=== PATIENT | female | born 1990 | race Caucasian/White ===

== ENCOUNTER → 2017-11-12 10:44 | Outpatient (CLI) | payer OTHER, SELFPAY ==
[2017-11-12 10:16] VITALS: BP 107/57; BMI 27.3
[2017-11-12 11:10] LABS: Absolute Lymphocyte Count 1.34 X10^3/ul (0.83-4.51); Absolute Neutrophil Count 6.5 X10^3/uL (2.0-7.7); Basophil# 0.01 X10^3/uL; Basophil% 0.1 % (0-1); Eosinophil# 0.02 X10^3/uL; Eosinophils% 0.2 % (0-5); Hematocrit 34.6 % (37-47); Hemoglobin 12.1 g/dl (12.0-15.0); Lymphocyte # 1.34 X10^3/ul (4.0); Lymphocyte % 16.2 % (19-41); Mean Corpuscular Hgb 30.9 pg (27.0-32.0); Mean Corpuscular Volume 88.3 fL (81-99); Mean Platelet Vol. 9.8 fl (6.2-12.0); Monocyte# 0.35 X10^3/uL; Monocyte% 4.2 % (0-10); Neutrophil # 6.51 X10^3/uL (2.7-7.7); Neutrophil % 78.7 % (47-70); POSITIVE COUNT NO; POSITIVE DIFFERENTIAL NO; POSITIVE MORPHOLOGY NO; Platelet Count 188 K/mm3 (150-450); RBC Distribution Width SD 41.6 fl (35.1-43.9); Red Blood Count 3.92 M/mm3 (4.2-5.4); White Blood Count 8.3 K/mm3 (4.4-11.0)
[2017-11-12 11:33] LABS: Glucose Challenge Gest 1H 50g 95 mg/dL (70-140)
== END ==
PROVIDERS: Nurse Practitioner Women's Health; Visit Provider Obstetrics & Gynecology
DX: Z34.90 Encounter for supervision of normal pregnancy, unspecified, unspecified trimester (principal)
CPT/HCPCS: 36415; 82950; 85025

== ENCOUNTER → 2017-12-12 18:06 | Outpatient (CLI) | payer OTHER, SELFPAY | PROVIDERS: Visit Provider Obstetrics & Gynecology | DX: Z34.90 Encounter for supervision of normal pregnancy, unspecified, unspecified trimester (principal) | CPT/HCPCS: 87086 ==

== ENCOUNTER → 2018-01-16 18:24 | Outpatient (CLI) | payer OTHER, SELFPAY ==
[2018-01-16 20:24] LABS: Group B Strep DNA By PCR POSITIVE (Negative); Probe Check PASS
== END ==
PROVIDERS: Visit Provider Nurse Practitioner Women's Health
DX: Z34.93 Encounter for supervision of normal pregnancy, unspecified, third trimester (principal); Z3A.36 36 weeks gestation of pregnancy
CPT/HCPCS: 87653

== ENCOUNTER → 2018-02-13 11:59 | Outpatient (CLI) | payer OTHER, SELFPAY ==
[2018-02-13 12:15] LABS: Protein, Urine (Random) 43.4 mg/dL (<11.9); Protein:Creat Ratio 184 mg/g CRE (0-200)
== END ==
PROVIDERS: Visit Provider Nurse Practitioner Women's Health
DX: R80.9 Proteinuria, unspecified (principal)
CPT/HCPCS: 82570; 84156

== ENCOUNTER 2018-02-18 07:15 | Inpatient (IN) | payer OTHER, SELFPAY ==
[2018-02-18] MEDS: Lactated Ringers 1,000 ML 50 ML IV ×3 (07:40→14:58)
[2018-02-18] MEDS: Oxytocin 30 units/NS 500 ml 30 UNITS/500 ML IV.SOLN IV (07:50)
[2018-02-18 08:04] LABS: Hematocrit 34.5 % (37-47); Hemoglobin 12.4 g/dl (12.0-15.0); Mean Corp Hgb Conc 35.9 g/gl (32-36); Mean Corpuscular Hgb 30.8 pg (27.0-32.0); Mean Corpuscular Volume 85.8 fL (81-99); Mean Platelet Vol. 10.2 fl (6.2-12.0); Platelet Count 189 K/mm3 (150-450); RBC Distribution Width CV 12.7 % (11.6-14.6); RBC Distribution Width SD 38.5 fl (35.1-43.9); Red Blood Count 4.02 M/mm3 (4.2-5.4)
[2018-02-18 08:05] LABS: Scan Indicated on CBC? Y/N NO
--- NOTE | 2018-02-18 10:16 | HP.PCM_ITS ---
- Problem List (1) Post-dates Status: Acute (2) Positive GBS test Status: Acute Comment: pcn (3) Recurrent loss with current Status: Acute (4) Supervision of normal Status: Acute Qualifiers: Comment: PRR CIRO 02/12/18 girl David shaikh Sohail History Date of Admission: 02/18/18 Final CIRO: 02/12/18 Gestational age: 40 Weeks and 6 Days History of this : 28 yo @ 40w6d presents IOL postdates Pertinent Past Medical History: PFSH PFSH Surgical History History of thyroid surgery (Acute) S/P bunionectomy (Acute) Social History Smoking Status: Never smoker alcohol intake: never substance use type: does not use caffeine: Yes what type of physical activity do you participate in: none seatbelt use: always do you feel safe at home: Yes additional social history: Sujata [place] Pregancy History 5 Elective abortions Hx Para 1 Spontaneous abortions Hx # Term Pregnancies Ectopic pregnancies Hx # Pregnancies Multiple births # of living children Past Pregnancies Del. Date Name GA/Weeks Outcome Route Bth Weight Gen Labor Lgth Anesthesia Del Locatn Provider FOB Unknown 2015 [place] live - full term SUNITA Allergies codeine Allergy (Verified 02/17/18 09:53) Nausea/Vom/Diarrhea Current Medications Acetaminophen (Tylenol) 325 - 650 mg PO Q4H PRN PRN PRN Reason: PAIN OR FEVER >100.4F Al Hydroxide/Mg Hydroxide (Mylanta Ii) 15 - 30 ml PO Q4H PRN PRN PRN Reason: INDIGESTION Citric Acid/Sodium Citrate (Bicitra) 30 ml PO UD PRN Penicillin G Potassium/Dextrose (Penicillin G Potassium) 3 mu in 50 mls @ 100 mls/hr IV Q4H ANJANA Oxytocin/Sodium Chloride () 30 units in 500 mls @ 1 mls/hr IV .Q500H ANJANA Lactated Ringer's () 1,000 mls @ 50 mls/hr IV .Q20H ANJANA Nalbuphine HCl (Nubain) 5 - 10 mg IV Q3H PRN PRN PRN Reason: PAIN (4-10/10) Ondansetron HCl (Zofran) 4 mg IV Q8H PRN PRN PRN Reason: NAUSEA Promethazine HCl (Phenergan) 6.25 - 12.5 mg IV Q4H PRN PRN; Protocol PRN Reason: IF NAUSEA PERSISTS Sodium Chloride () 5 - 15 ml IV UD [facility] Smoking Status: Never smoker Alcohol: None Drug Use: none Number of Fetus(es): 1 - fht 130-140 moderate variability reactive no decels Review of Systems Constitutional: Denies: Chills, Fever, Weight Change HEENT: Denies: Head Aches, Sinus Congestion, Sinus Drainage Cardiovascular: Denies: Chest Pain, Palpitations Respiratory: Denies: Cough, Shortness of breath at rest, Sputum production Gastrointestinal: Denies: Abdominal Pain, Nausea, Vomiting Genitourinary: Denies: Dysuria Musculoskeletal: Denies: Joint Pain, Joint Tenderness Skin: Denies: Rash, Wounds Neurological: Denies: Numbness, Tingling, Focal weakness Psychiatric: Denies: Anxiety, Depression, Homicidal Ideations, Suicidal Ideations Hematologic/ Lymphatic: Denies: Easy Bruising, Easy Bleeding Physical Exam General: Alert, Oriented x3, No apparent distress Cardiovascular: Regular rate, Regular Rhythm Lungs: Normal air movement Abdomen: Gravid Extremities:: No edema Estimated gestational size: Appropriate for gestational size Assessment/Plan Active and Suspected Problems (Last Reviewed 02/17/18 @ 09:52 by Negar García) Post-dates (Acute) 28 yo @ 40w6d prsents IOL postdates gbs pos- PCN pit per protocol epi PRN
[2018-02-18] MEDS: fentaNYL-bupivacaine (epidural) 100 ML BAG EPIDURAL (13:42)
[2018-02-18] MEDS: Oxytocin 30 units/NS 500 ml 30 UNITS/500 ML IV.SOLN 334 UNITS IV (15:47)
--- NOTE | 2018-02-18 17:31 | PCM.OB.VAG ---
- Problem List (1) Post-dates Status: Acute (2) Positive GBS test Status: Acute Comment: pcn (3) Recurrent loss with current Status: Acute (4) Supervision of normal Status: Acute Qualifiers: Comment: PRR CIRO 02/12/18 girl David shaikh Sohail Vaginal Delivery Maternal Presentation: Medically Indicated Induction postdates IOL 40w6d Method of Induction: Pitocin Amniotic Membrane Rupture Type: Artificial Amniotic Fluid Description: Clear Final CIRO: 02/12/18 Gestational age: 40 Weeks and 6 Days Date of Procedure: 02/18/18 Pre-Operative Diagnosis: iol postdates Post-Operative Diagnosis: same Surgery/ Procedure Performed: Spontaneous Vaginal Delivery Type of Anesthesia: Epidural Description of Procedure: Patient began pushing and delivered the head in the KETAN presentation. The head was delivered atraumatically. The anterior and posterior shoulders delivered without complication followed by the rest of the and the infant was placed on the maternal abdomen. Delayed cord clamping was employed for approximately 60 seconds. Cord was clamped and cut and gentle traction was applied to the cord and the placenta delivered spontaneously immediately following it was noted to be intact with three-vessel cord. The perineum and vagina were inspected and noted to have a first degree laceration repaired in the usual fashion with 3-0 vicryl rapide. EBL was 200 cc. Patient and infant tolerated delivery well. Presentation: KETAN Placental Delivery Description: Spontaneous Placenta Disposition: [facility] Cord Vessel Description: 3 Vessels Cord Entanglement: None Estimated Blood Loss: 400 Infant A gender: Female Episiotomy Description: None Laceration: Perineal Extension/lac, 2nd degree Medications given after delivery: IV Pitocin Complications: None
[2018-02-18 20:10] VITALS: BP 101/65; PULSE 72; RESP 16; TEMP 36.3
[2018-02-18 23:15] VITALS: BP 97/52; PULSE 89; RESP 16; TEMP 35.9
[2018-02-19 03:35] VITALS: BP 95/51; PULSE 63; RESP 17; TEMP 36.4
[2018-02-19] MEDS: Naproxen 250 MG Tablet PO ×3 (03:54→20:06)
[2018-02-19 07:39] VITALS: BP 97/65; PULSE 72; RESP 16; TEMP 36.9; O2SAT 96
--- NOTE | 2018-02-19 08:01 | PCM.PN.OB ---
Patient Problems: Active and Suspected Problems (Last Reviewed 02/17/18 @ 09:52 by Negar García) Post-dates (Acute) Subjective: Doing well. No SOB, CP. - Physical Exam General: Alert, Oriented x3 Abdomen: Soft, Non Tender Extremities: - - FF below U Vital Signs Temp Pulse Resp BP Pulse Ox 98.4 F 72 16 97/65 96 02/19/18 07:39 02/19/18 07:39 02/19/18 07:39 02/19/18 07:39 02/19/18 07:39 Oxygen Delivery Method Room Air Weight: 180 lb 12.465 oz Body Mass Index (BMI) 30.0 Intake and Output for Last 24 Hours 02/17/18 02/18/18 02/19/18 23:59 23:59 23:59 Intake Total 2800 / 2800 Output Total 1450 / 1450 Balance 1350 / 1350 Laboratory Tests Past 24 Hrs 02/18/18 02/18/18 07:40 07:40 WBC 9.0 RBC 4.02 L Hgb 12.4 Hct 34.5 L MCV 85.8 MCH 30.8 MCHC 35.9 RDW 12.7 RDW Differential 38.5 Plt Count 189 MPV 10.2 Blood Type A POSITIVE Antibody Screen NEGATIVE Medical Necessity - Tobacco Use Smoking Status: Never smoker Assessment/Plan Active and Suspected Problems (Last Reviewed 02/17/18 @ 09:52 by Negar García) Post-dates (Acute) PPD #1: Doing well. . Routine care
[2018-02-19] MEDS: Prenatal Vits Tablet 1 TABLET PO (11:48)
[2018-02-19 11:53] VITALS: BP 97/57; PULSE 75; RESP 16; TEMP 37.2; O2SAT 97
--- NOTE | 2018-02-19 12:44 | CHAPLAIN ---
Type of Pastoral Visit _x__ Initial Visit ___ Follow-up Visit ___ On-call Visit ___ General Patient Visit ___ Spiritual Assessment ___ Family Conference ___ Bereavement ___ Rapid Response ___ Code Blue ___ Other (describe below) Pastoral Care Referral From _x__ Patient ___ Family ___ Nurse ___ Physician ___ Irrigation Manager ___ Hardboard Supervisor ___ Other (describe below) Sacrament/Intervention _x__ Active listening ___ Anointing ___ Nondenominational ___ Bereavement ___ Communion ___ Joan exploration ___ _x__ Life review _x__ Prayer ___ Reconciliation ___ Sacrament of Sick ___ Supportive presence ___ Wedding ___ Other (describe below) Pastoral Comments patient and family known to this auriculotherapist; offer of support to patient on of child; prayer and visit welcomed
[2018-02-19 15:30] VITALS: BP 100/63; PULSE 75; RESP 18; TEMP 36.9
[2018-02-19 20:05] VITALS: BP 105/63; PULSE 78; RESP 16; TEMP 36.7; O2SAT 99
[2018-02-20 01:40] VITALS: BP 104/58; PULSE 72; RESP 16; TEMP 36.4; O2SAT 98
--- NOTE | 2018-02-20 07:54 | PCM.PN.OB ---
Patient Problems: Active and Suspected Problems (Last Reviewed 02/17/18 @ 09:52 by Negar García) Post-dates (Acute) Subjective: Doing well. No SOB, CP. Normal lochia. Ambulating and voiding normally. Home today. - Physical Exam General: Alert, Oriented x3 Abdomen: Soft, Non Tender, - - FF below U Vital Signs Temp Pulse Resp BP Pulse Ox 97.6 F L 72 16 104/58 L 98 02/20/18 01:40 02/20/18 01:40 02/20/18 01:40 02/20/18 01:40 02/20/18 01:40 Oxygen Delivery Method Room Air Weight: 180 lb 12.465 oz Body Mass Index (BMI) 30.0 Intake and Output for Last 24 Hours 02/18/18 02/19/18 02/20/18 23:59 23:59 23:59 Intake Total 2800 / 2800 Output Total 1450 / 1450 Balance 1350 / 1350 Medical Necessity - Tobacco Use Smoking Status: Never smoker Assessment/Plan Active and Suspected Problems (Last Reviewed 02/17/18 @ 09:52 by Negar García) Post-dates (Acute) PPD#2 Routine care. . OTC med for discomfort. Home today.
--- NOTE | 2018-02-20 07:56 | DCINST_ITS ---
Additional Instructions: If you experience any of the following, contact your healthcare provider. * Bleeding that soaks a pad every hour for 2 hours * Fever 100.4 or higher * Unrelieved incision or abdominal pain * Swelling, redness, discharge or bleeding from your incision or episiotomy site * Your incision begins to separate * Problems urinating (including inability to urinate or burning while urinating) . * Visual changes * Severe headache * Flu-like symptoms * Pain or redness in one of both of your breasts * Pain, warmth, tenderness or swelling in your legs, especially the calf area * Frequent nausea and vomiting * Symptoms of depression or anxiety If you experience any of the following, call 911 or go to the nearest Emergency Room. * Chest pain * Problems breathing * Seizure activity * Partial or complete paralysis of a body part, slurred speech, weakness or drooping of the face, or a sudden inability to walk or hold your balance Allergies/Adverse Reactions: Allergies codeine Allergy (Verified 02/17/18 09:53) Nausea/Vom/Diarrhea Medications to take at Discharge Vit No.130/Iron/FA [ Vitamins] 1 ea PO DAILY 12/06/15 Primary Care Physician: Care Physician,No Primary [Primary Care Provider] -
--- NOTE | 2018-02-20 07:56 | PCM.DCVAG ---
Additional Instructions: If you experience any of the following, contact your healthcare provider. Bleeding that soaks a pad every hour for 2 hours Fever 100.4 or higher Unrelieved incision or abdominal pain Swelling, redness, discharge or bleeding from your incision or episiotomy site Your incision begins to separate Problems urinating (including inability to urinate or burning while urinating). Visual changes Severe headache Flu-like symptoms Pain or redness in one of both of your breasts Pain, warmth, tenderness or swelling in your legs, especially the calf area Frequent nausea and vomiting Symptoms of depression or anxiety If you experience any of the following, call 911 or go to the nearest Emergency Room. Chest pain Problems breathing Seizure activity Partial or complete paralysis of a body part, slurred speech, weakness or drooping of the face, or a sudden inability to walk or hold your balance Allergies/Adverse Reactions: Allergies codeine Allergy (Verified 02/17/18 09:53) Nausea/Vom/Diarrhea Medications to take at Discharge Vit No.130/Iron/FA [ Vitamins] 1 ea PO DAILY 12/06/15 Primary Care Physician: Care Physician,No Primary [Primary Care Provider] -
[2018-02-20 08:34] VITALS: BP 108/77; PULSE 68; RESP 20; TEMP 37; O2SAT 97
[2018-02-20] MEDS: Prenatal Vits Tablet 1 TABLET PO (10:12)
--- NOTE | 2018-02-20 10:50 | NURSING ---
1030 While rounding, Mom states that she hasn't decided whether she will continue or not. I discussed her calling if she has any further questions or concerns with feedings. Encouragement given. Latrice MARTINEZ
== END 2018-02-20 11:00 | disposition home or self-care (01) | DRG 774 ==
PROVIDERS: Admitting Provider Obstetrics & Gynecology; Visit Provider Obstetrics & Gynecology
DX: O48.0 Post-term pregnancy (principal); O98.82 Other maternal infectious and parasitic diseases complicating childbirth; Z3A.40 40 weeks gestation of pregnancy; B95.1 Streptococcus, group B, as the cause of diseases classified elsewhere; O70.0 First degree perineal laceration during delivery; Z37.0 Single live birth
CPT/HCPCS: 59025; 59050; 85027; 86850; 86900; 99218; J7120; G0378

== ENCOUNTER → 2023-12-31 | Outpatient (CLI) | payer OTHER, SELFPAY ==
[2024-01-03 06:09] LABS: Chlamydia By Nucleic Acid AMP Negative (Negative); Gonococcus By Nucleic Acid AMP Negative (Negative)
[2024-01-06 15:07] LABS: HPV APTIMA, High Risk Negative (Negative)
== END | disposition home or self-care (01) ==
LOC: LABSPEC 16:04
PROVIDERS: Referring Provider Advanced Practice Midwife; Visit Provider Advanced Practice Midwife
DX: Z34.90 Encounter for supervision of normal pregnancy, unspecified, unspecified trimester (principal); E07.9 Disorder of thyroid, unspecified
CPT/HCPCS: 87086; 87491; 87591; 87624; 88175; G0145

== ENCOUNTER → 2024-01-23 | Outpatient (CLI) | payer OTHER, SELFPAY ==
[2024-01-23 13:34] LABS: Absolute Lymphocyte Count 1.45 X10^3/uL (0.83-4.51); Absolute Neutrophil Count 3.9 X10^3/uL (2.0-7.7); Basophil# 0.03 X10^3/uL; Basophil% 0.5 % (0-1); Eosinophil# 0.05 X10^3/uL; Eosinophils% 0.9 % (0-5); Hematocrit 37.9 % (37-47); Hemoglobin 13.2 g/dL (12.0-15.0); Lymphocyte # 1.45 X10^3/ul (0.83-4.51); Mean Corp Hgb Conc 34.8 g/dL (32-36); Mean Corpuscular Hgb 29.5 pg (27.0-32.0); Mean Corpuscular Volume 84.6 fL (81-99); Mean Platelet Vol. 9.9 fl (6.2-12.0); Monocyte# 0.31 X10^3/uL; Monocyte% 5.4 % (0-10); NRBC Flagged by Analyzer 0 % (0-5); Neutrophil # 3.92 X10^3/uL (2.7-7.7); Neutrophil % 67.7 % (47-70); Platelet Count 211 K/mm3 (150-450); RBC Distribution Width CV 12.4 % (11.6-14.6); RBC Distribution Width SD 38.2 fl (35.1-43.9); Red Blood Count 4.48 M/mm3 (4.2-5.4); White Blood Count 5.8 K/mm3 (4.4-11.0)
[2024-01-23 14:09] LABS: T4 Free Direct 1.15 ng/dL (0.76-1.46); Thyroid Stim Hormone (TSH) 1.83 uIU/mL (0.358-3.74)
[2024-01-23 17:57] LABS: HIV - WCH Preliminary Reactive (Nonreactive); Hepatitis B Surface Antigen Non-Reactive (Nonreactive); Hepatitis C Antibody Non-Reactive (Nonreactive); Rubella IgG Reactive (Nonreactive); Syphilis Antibodies Non-reactive
[2024-01-25 08:13] LABS: Thyroid Peroxidase AB 11 IU/mL (0-34)
== END | disposition home or self-care (01) ==
PROVIDERS: Visit Provider Advanced Practice Midwife
DX: Z34.90 Encounter for supervision of normal pregnancy, unspecified, unspecified trimester (principal)
CPT/HCPCS: 36415; 84439; 84443; 85025; 86376; 86703; 86762; 86780; 86803; 86850; 86900; 86901; 87340

== ENCOUNTER → 2024-01-28 | Outpatient (CLI) | payer OTHER, SELFPAY ==
[2024-01-31 16:10] LABS: Anti-Cardiolipin Ab, IgG, Qn < 9 GPL U/mL (0-14); Anti-Cardiolipin Ab, IgM, Qn < 9 MPL U/mL (0-12); Beta-2-Glycoprotein I IgA <9 (0-25); Beta-2-Glycoprotein I IgG <9 (0-20); Beta-2-Glycoprotein I IgM <9 (0-32); Dilute Russell Viper Venom 32.3 sec (0.0-47.0); Interpretation Comment: (.); PTT-LA 36.4 sec (0.0-43.5); Thrombin Time 16.6 sec (0.0-23.0); dPT Confirm Ratio 1.03 Ratio (0.00-1.34)
== END | disposition home or self-care (01) ==
PROVIDERS: Referring Provider Obstetrics & Gynecology; Visit Provider Obstetrics & Gynecology
DX: N96 Recurrent pregnancy loss (principal)
CPT/HCPCS: 36415; 86146; 86147

== ENCOUNTER → 2024-05-20 | Outpatient (CLI) | payer OTHER, SELFPAY ==
[2024-05-20 10:19] LABS: Absolute Lymphocyte Count 1.49 X10^3/uL (0.83-4.51); Absolute Neutrophil Count 6.2 X10^3/uL (2.0-7.7); Basophil# 0.02 X10^3/uL; Basophil% 0.2 % (0-1); Eosinophil# 0.06 X10^3/uL; Eosinophils% 0.7 % (0-5); Hematocrit 35.1 % (37-47); Hemoglobin 12.2 g/dL (12.0-15.0); Lymphocyte # 1.49 X10^3/ul (0.83-4.51); Lymphocyte % 18.3 % (19-41); Mean Corp Hgb Conc 34.8 g/dL (32-36); Mean Corpuscular Hgb 29.9 pg (27.0-32.0); Mean Platelet Vol. 10.1 fl (6.2-12.0); Monocyte# 0.33 X10^3/uL; Monocyte% 4.1 % (0-10); NRBC Flagged by Analyzer 0 % (0-5); Neutrophil # 6.17 X10^3/uL (2.7-7.7); Platelet Count 196 K/mm3 (150-450); RBC Distribution Width CV 12.6 % (11.6-14.6); RBC Distribution Width SD 38.9 fl (35.1-43.9); Red Blood Count 4.08 M/mm3 (4.2-5.4); White Blood Count 8.1 K/mm3 (4.4-11.0)
[2024-05-20 10:40] LABS: Glucose Challenge Gest 1H 50g 107 mg/dL (70-140)
[2024-05-20 11:17] LABS: HIV - WCH Non-Reactive (Nonreactive); Syphilis Antibodies Non-reactive
== END | disposition home or self-care (01) ==
PROVIDERS: Referring Provider Advanced Practice Midwife; Visit Provider Advanced Practice Midwife
DX: O09.92 Supervision of high risk pregnancy, unspecified, second trimester (principal); Z3A.00 Weeks of gestation of pregnancy not specified
CPT/HCPCS: 36415; 82950; 85025; 86703; 86780

== ENCOUNTER → 2024-07-27 | Outpatient (CLI) | payer OTHER, SELFPAY | END | disposition home or self-care (01) | LOC: LABSPEC 14:42 | PROVIDERS: Referring Provider Obstetrics & Gynecology; Visit Provider Obstetrics & Gynecology | DX: O09.92 Supervision of high risk pregnancy, unspecified, second trimester (principal); Z3A.00 Weeks of gestation of pregnancy not specified | CPT/HCPCS: 87077; 87081; 87186 ==

== ENCOUNTER → 2024-08-19 | Outpatient (CLI) | payer OTHER, SELFPAY ==
--- NOTE | 2024-08-19 17:00 | US_ITS ---
STUDY: SECOND AND THIRD TRIMESTER OBSTETRICAL ULTRASOUND - LIMITED REASON FOR EXAM: Female, 34 years old fluid level PRIOR ULTRASOUND: No relevant prior comparison study available TECHNIQUE: Transabdominal TECHNICAL QUALITY: Adequate. FINDINGS: There is a single intrauterine fetus. The fetus is in a cephalic presentation. There is demonstrated cardiac activity with a heart rate of 1:30 bpm. There is a normal amniotic fluid volume. The largest amniotic fluid pocket measures 8.3 cm. The amniotic fluid index (ALEXANDER) is 19.25 cm. The placenta is posterior. BIOMETRY: BPD: 9.49 cm: 38 weeks, 5 days HC: 33.65 cm: 38 weeks, 4 days AC: 35.29 cm: 39 weeks, 1 days FL: 7.59 cm: 38 weeks, 6 days age by current US: 38 weeks, 5 days. CIRO by current US: August 28, 2024. Estimated weight: 3703 grams, +/- 555 grams US/OB Limited With Biometrics IMPRESSION: Single live intrauterine with an estimated gestational age of 30 weeks and 5 days. Electronically Signed: Sara Reddy MD at 8:28 EST ,
== END | disposition home or self-care (01) ==
LOC: US 16:59
PROVIDERS: Referring Provider Advanced Practice Midwife; Visit Provider Advanced Practice Midwife
DX: O26.849 Uterine size-date discrepancy, unspecified trimester (principal); Z3A.00 Weeks of gestation of pregnancy not specified
CPT/HCPCS: 76816

== ENCOUNTER 2024-08-26 07:12 | Inpatient (IN) | payer OTHER, SELFPAY ==
[2024-08-26] VITALS (26 sets, daily range): BP systolic 97–125; BP diastolic 57–76; PULSE 62–88; RESP 15–16; TEMP 36.6–37.2; O2SAT 94–97; BMI 32.1
--- OUTSIDE RECORDS SUMMARY | 2024-08-26 07:12 | XMS RPT_ITS | CCD ---
Author Organization [facility] Inform ion [facility] Care Team Providers Care Cocoa Roaster Name Role Phone Rosalba Dupont MD Unavailable [phone] MICHELLE Arredondo RN, Jen Bernal Unavailable Brady Arredondo RN RN, Jen Bernal Unavailable Jayshree Sherman Unavailable Unavailable Rosalba Dupont MD Unavailable [phone] MICHELLE Arredondo RN, Jen Bernal Unavailable Brady READ PRIMARY CAREMD Primary Care Unavailable ROSALBA DUPONT Referring KHALIDA Warner Attending Unavailable Allergies Allergy Classification Reported Allergen(s) Allergy Type Date of Onset Reaction(s) Facility (20 sources) brompheniramine/ phenylpropanolam ine drug allergy 12-27-2010 [facility] Work Phone: (20 sources) codeine drug allergy 12-27-2010 [facility] Work Phone: Medications Completed/Discontinued Medications Medication Drug Class(es) Dates Sig (Normalized) Sig (Original) azithromycin 250 mg oral tablet (20 sources) Macrolide Antimicrobial Start: 12-27-2010 End: 01-01-2011 ZITHROMAX 250 MG TABS Take two (2 ) tablets day one, then one (1) tablet a day for four (4) more days AZITHROMYCIN [id number] Jeri Little PA-C PLEXUS (20 sources) Start: 05-06-2017 PLEXUS PLEXUS Rosalba Dupont MD Start: 05-06-2017 PLEXUS PLEXUS Rosalba Dupont MD VIT-FE FUMARATE-FA (2 sources) Start: 06-20-2017 VITAM INS 28-0.8 MG TABS VIT-FE FUMARATE-FA [id number] Rosalba Dupont MD Start: 06-20-2017 VITAM INS 28-0.8 MG TABS VIT-FE FUMARATE-FA [id number] Rosalba Dupont MD VIT-FE FUMARATE-FA (9 sources) Start: 06-20-2017 VITAM INS 28-0.8 MG TABS VIT-FE FUMARATE-FA [id number] Rosalba Dupont MD VIT-FE FUMARATE-FA (5 sources) Start: 06-20-2017 VITAM INS 28-0.8 MG TABS VIT-FE FUMARATE-FA [id number] Rosalba Dupont MD Start: 06-20-2017 VITAM INS 28-0.8 MG TABS VIT-FE FUMARATE-FA [id number] Rosalba Dupont MD Problems Active Problems Problem Classification Problem Date Documented Da te Episodic/Chronic Unclassified (18 sources) 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; Translations: [ care for patient with recurrent loss, first trimester] Onset: 06-11-2017 06-28-2017 Past or Other Problems Problem Classification Problem Date Documented Da te Episodic/Chronic Other complications of ; puerperium affecting management of mother (20 sources) High risk ; Translations: [Supervision of high risk , unspecified, first trimester] Onset: 05-03-2017 Resolved: 05-06-2017 05-06-2017 Episodic Other complications of (20 sources) care for patient with recurrent loss, first trimester; Translations: [High risk ] Onset: 05-03-2017 Resolved: 05-06-2017 06-11-2017 Episodic Other female genital disorders (20 sources) History of recurrent miscarriage - not ; Translations: [Recurrent loss] Onset: 05-06-2017 Resolved: 06-27-2017 05-06-2017 Episodic Other and delivery including normal (13 sources) Gestation period, 9 weeks; Translations: [Gestation period, 17 weeks] Onset: 07-15-2017 07-15-2017 Episodic Other upper respiratory infections (20 sources) Upper respiratory infection; Translations: [Acute upper respiratory infection, unspecified] Onset: 12-27-2010 Resolved: 01-17-2011 12-27-2010 Episodic Residual codes; unclassified (8 sources) 11 weeks gestation of ; Translations: [11 weeks gestation of ] Onset: 07-15-2017 07-29-2017 Results Test Name Value Interpretation Reference Range Facil ity Office Visit: OB Routineon 1 11-07-2016 Documentation of current medications (procedure) Done Invalid Interpretation Code [facility] Urine, glucose presence N Invalid Interpretation Code [facility] Urine, protein N Invalid Interpretation Code [facility] Lab Report: Rapid Plasmin Re agin (RPR)on 08-02-2017 Reagin antibody presence NONREACTIVE Invalid Interpretation Code NONREACTIVE [facility] Lab Report: HIV Screen 4TH G EN W/Confirmon 07-30-2017 GE use only - for LinkLogic import when terms are not otherwise specified Non Reactive Invalid Interpretation Code Non Reactive [facility] HIV1/0/2 SCREEN Non Reactive Invalid Interpretation Code Non Reactive [facility] Lab Report: Hepatitis B Surf carolin Agon 07-30-2017 BSA (Body Surface Area) Negative Invalid Interpretation Code Negative [facility] HBV surface Ag Ql (S) Negative Invalid Interpretation Code Negative [facility] Lab Report: CBC W/Diff, Auto matedon 07-29-2017 Absolute Neut 4.1 X10 3/UL Invalid Interpretation Code 2.0-7.7 [facility] Basophils/100 WBC Auto (Bld) 0.2 % Invalid Interpretation Code 0-1 [facility] Eosinophils/100 WBC Auto (Bld) 0.2 % Invalid Interpretation Code 0-5 [facility] Erythrocyte distribution width Auto Ratio (RBC) 13.0 % Invalid Interpretation Code 11.6-14.6 [facility] Erythrocyte distribution width Auto Ratio (RBC) 39.8 fL Invalid Interpretation Code 35.1-43.9 [facility] Hematocrit Auto Volume Fraction (Bld) 37.5 % Invalid Interpretation Code 37-47 [facility] Hemoglobin mass conc (Bld) 13.3 g/dL Invalid Interpretation Code 12.0-15.0 [facility] Immature granulocytes #/vol (Bld) 0.400 % Invalid Interpretation Code 0.0-0.9 [facility] immature granulocytes, percentage of total cells, blood 0.400 % Invalid Interpretation Code 0.0-0.9 [facility] Immature granulocytes/100 WBC (Bld) 0.400 % Invalid Interpretation Code 0.0-0.9 [facility] Lymphocytes Auto #/vol (Bld) 1.17 X10 3/UL Invalid Interpretation Code 0.83-4.51 [facility] Lymphocytes/100 WBC Auto (Bld) 20.8 % Invalid Interpretation Code 19-41 [facility] MCH Auto Entitic mass (RBC) 30.3 pg Invalid Interpretation Code 27.0-32.0 [facility] MCHC Auto mass conc (RBC) 35.5 G/GL Invalid Interpretation Code 32-36 [facility] MCV Auto Entitic volume (RBC) 85.4 fL Invalid Interpretation Code 81-99 [facility] Monocytes/100 WBC Auto (Bld) 5.0 % Invalid Interpretation Code 0-10 [facility] neutrophil count, blood 4.1 X10 3/UL Invalid Interpretation Code 2.0-7.7 [facility] Neutrophils Auto #/vol (Bld) 4.1 X10 3/UL Invalid Interpretation Code 2.0-7.7 [facility] Neutrophils/100 WBC Auto (Bld) 73.4 % High 47-70 [facility] Platelet mean volume Peter-Kemi Entitic volume (Bld) 10.1 fL Invalid Interpretation Code 6.2-12.0 [facility] Platelets Auto #/vol (Bld) 218 10*3/mm3 Invalid Interpretation Code 150-450 [facility] RBC Auto #/vol (Bld) 4.39 10*6/uL Invalid Interpretation Code 4.2-5.4 [facility] RDW SD 39.8 fL Invalid Interpretation Code 35.1-43.9 [facility] red blood cell distribution width, size density 39.8 fL Invalid Interpretation Code 35.1-43.9 [facility] WBC Auto #/vol (Bld) 5.6 10*3/uL Invalid Interpretation Code 4.4-11.0 [facility] Lab Report: Rubella IgGon Rubella IgG 30.4 [iU]/mL Invalid Interpretation Code [facility] rubella virus antibody, IgG 30.4 [iU]/mL Invalid Interpretation Code [facility] Office Visit: OB Routineon 1 Albumin Ql (U) N Invalid Interpretation Code [facility] Documentation of current medications (procedure) Done Invalid Interpretation Code [facility] Glucose Test strip mass conc (U) N Invalid Interpretation Code [facility] Protein mass conc Done Invalid Interpretation Code [facility] Urine, glucose presence N Invalid Interpretation Code [facility] Urine, protein N Invalid Interpretation Code [facility] Lab Report: CT/NG WCH BY PCR on 07-15-2017 C. trachomatis DNA ZAHEER+probe Ql (U) Negative Invalid Interpretation Code Negative [facility] N. gonorrhoeae DNA ZAHEER+probe Ql (Unsp spec) Negative Invalid Interpretation Code Negative [facility] Office Visit: OB Initialon 1 crown rump length by ultrasound 26 mm Invalid Interpretation Code [facility] Documentation of current medications (procedure) Done Invalid Interpretation Code [facility] estimated date of confinement by sonogram 02/12/2018 Invalid Interpretation Code [facility] Fall risk assessment No Invalid Interpretation Code [facility] cardiac activity by sonography Yes Invalid Interpretation Code [facility] number by ultrasound 1 Invalid Interpretation Code [facility] gestational age by ultrasound 9W 5D Invalid Interpretation Code [facility] Herpes Simplex Virus Genital no Invalid Interpretation Code [facility] OB ultrasound, gestational sac Yes Invalid Interpretation Code [facility] Tobacco smoking status TNIS Never Invalid Interpretation Code [facility] Tobacco smoking status TNIS Tobacco smoking status TNIS Invalid Interpretation Code [facility] Tobacco smoking status TNIS Never smoker Invalid Interpretation Code [facility] Tobacco use HS Never smoker Invalid Interpretation Code [facility] Office Visit: OB Routineon 0 06-27-2017 Documentation of current medications (procedure) Done Invalid Interpretation Code [facility] estimated date of confinement by sonogram 02/18/2018 Invalid Interpretation Code [facility] cardiac activity by sonography Yes Invalid Interpretation Code [facility] number by ultrasound 1 Invalid Interpretation Code [facility] OB ultrasound, gestational sac Yes Invalid Interpretation Code [facility] Protein mass conc Done Invalid Interpretation Code [facility] Lab Report: Urinalysis, Rout ine (Dipstick)on 06-21-2017 Albumin Ql (U) Negative Invalid Interpretation Code Negative [facility] Bilirubin Ql (U) Negative Invalid Interpretation Code Negative [facility] Clarity Nom (U) Clear Invalid Interpretation Code Clear [facility] Color Nom (U) Straw Invalid Interpretation Code Yellow [facility] Glucose Ql (U) Normal mg/dl Invalid Interpretation Code Normal [facility] Ketones mass conc (U) Negative Invalid Interpretation Code Negative [facility] Leukocyte esterase Test strip Ql (U) Negative Invalid Interpretation Code Negative [facility] NITRITE UR Negative Invalid Interpretation Code Negative [facility] Nitrite Urine Negative Invalid Interpretation Code Negative [facility] Occult Blood, urine Negative Invalid Interpretation Code Negative [facility] OCCULT BLOOD-UR Negative Invalid Interpretation Code Negative [facility] pH (U) 7.0 [pH] 5.0 - 8.0 [facility] Specific gravity Refractometry Relative Density (U) 1.005 Invalid Interpretation Code 1.002-1.030 [facility] Urine, bilirubin presence Negative Invalid Interpretation Code Negative [facility] Urine, ketones presence Negative Invalid Interpretation Code Negative [facility] Urine, pH 7.0 [pH] Invalid Interpretation Code 5.0 - 8.0 [facility] Urine, protein Negative Invalid Interpretation Code Negative [facility] UROBILI Normal mg/dl Invalid Interpretation Code Normal [facility] urobilinogen, urine, by dipstick Normal mg/dl Invalid Interpretation Code Normal [facility] Office Visit: OB Initialon 0 06-20-2017 Documentation of current medications (procedure) Done Invalid Interpretation Code [facility] estimated date of confinement by sonogram 02/23/2018 Invalid Interpretation Code [facility] Fall risk assessment No Invalid Interpretation Code [facility] cardiac activity by sonography No Invalid Interpretation Code [facility] number by ultrasound 1 Invalid Interpretation Code [facility] gestational age by ultrasound 4W 4D Invalid Interpretation Code [facility] OB ultrasound, gestational sac Yes Invalid Interpretation Code [facility] Protein mass conc Done [facility] Tobacco smoking status NHIS Never Invalid Interpretation Code [facility] Tobacco smoking status NHIS Never smoker Invalid Interpretation Code [facility] Tobacco use CPHS Never smoker Invalid Interpretation Code [facility] Lab Report: hCG Titer Quant. , Serumon 06-13-2017 B-HCG 830 m[IU]/mL High <9 non-preg [facility] Lab Report: hCG Titer Quant. , Serumon 06-11-2017 B-HCG 296 m[IU]/mL High <9 non-preg [facility] Lab Report: Miscellaneous La b Procedureon 05-08-2017 GE use only - for LinkLogic import when terms are not otherwise specified . Invalid Interpretation Code [facility] MISC LAB TEST . Invalid Interpretation Code [facility] Lab Report: Thyroid Stim Hor aby (TSH)on 05-06-2017 Thyrotropin Qn 1.73 u[iU]/mL Invalid Interpretation Code 0.358-3.74 [facility] Office Visit: Discuss M/Con 05-06-2017 Documentation of current medications (procedure) Done Invalid Interpretation Code [facility] Fall risk assessment No [facility] Protein mass conc Done [facility] Tobacco smoking status NHIS Never [facility] Tobacco smoking status NHIS Never smoker [facility] Tobacco use CPHS Never smoker Invalid Interpretation Code [facility] Lab Report: ,Serum, hCG Quali.on 05-03-2017 B-HCG 8 m[IU]/mL Invalid Interpretation Code =>Qualitative [facility] Work Phone: Replaced Document: (P) Pregn diana,Serum,hCG Quali.on 05-03-2017 beta HCG, serum, qualitative Negative Invalid Interpretation Code 0-9 Nonpreg [facility] Work Phone: Office Visit: sinus congesti onon 12-27-2010 Tobacco use CPHS never Invalid Interpretation Code [facility] Work Phone: Vital Signs Date Time Vital Sign Value Performing Clinician Seb holman 09-06-2017 12:10-0500 BMI (Body Mass Index) 25.79 kg/m2 Rosalba Dupont MD [facility] 09-06-2017 12:10-0500 BP Diastolic 69 mm[Hg] Rosalba Dupont MD [facility] 09-06-2017 12:10-0500 BP Systolic 108 mm[Hg] Rosalba Dupont MD [facility] 09-06-2017 12:10-0500 Weight 70.31 kg Rosalba Dupont MD [facility] 07-29-2017 10:50-0400 BMI (Body Mass Index) 25.42 kg/m2 Rosalba Dupont MD [facility] 07-29-2017 10:50-0400 Body Temperature 99.4 [degF] Rosalba Dupont MD [facility] 07-29-2017 10:50-0400 BP Diastolic 67 mm[Hg] Rosalba Dupont MD [facility] 07-29-2017 10:50-0400 BP Systolic 104 mm[Hg] Rosalba Dupont MD [facility] 07-29-2017 10:50-0400 Pulse (Heart Rate) 76 /min Rosalba Dupont MD [facility] 07-29-2017 10:50-0400 Respiratory Rate 16 /min Rosalba Dupont MD [facility] 07-29-2017 10:50-0400 Weight 69.31 kg Rosalba Dupont MD [facility] 07-15-2017 11:25-0400 BMI (Body Mass Index) 25.06 kg/m2 Rosalba Dupont MD [facility] 07-15-2017 11:25-0400 BP Diastolic 70 mm[Hg] Rosalba Dupont MD [facility] 07-15-2017 11:25-0400 BP Systolic 105 mm[Hg] Rosalba Dupont MD [facility] 07-15-2017 11:25-0400 Height 165.1 cm Rosalba Dupont MD [facility] 07-15-2017 11:25-0400 Pulse (Heart Rate) 80 /min Rosalba Dupont MD [facility] 07-15-2017 11:25-0400 Weight 68.31 kg Rosalba Dupont MD [facility] 06-27-2017 05:51-0400 BMI (Body Mass Index) 24.33 kg/m2 Rosalba Dupont MD [facility] 06-27-2017 05:51-0400 Body Temperature 97.4 [degF] Rosalba Dupont MD [facility] 06-27-2017 05:51-0400 BP Diastolic 67 mm[Hg] Rosalba Dupont MD [facility] 06-27-2017 05:51-0400 BP Systolic 114 mm[Hg] Rosalba Dupont MD [facility] 06-27-2017 05:51-0400 Pulse (Heart Rate) 93 /min Rosalba Dupont MD [facility] 06-27-2017 05:51-0400 Respiratory Rate 16 /min Rosalba Dupont MD [facility] 06-27-2017 05:51-0400 Weight 66.32 kg Rosalba Dupont MD [facility] 06-20-2017 10:30-0400 BMI (Body Mass Index) 24.23 kg/m2 Rosalba Dupont MD [facility] 06-20-2017 10:30-0400 Body Temperature 97.9 [degF] Rosalba Dupont MD [facility] 06-20-2017 10:30-0400 BP Diastolic 68 mm[Hg] Rosalba Dupont MD [facility] 06-20-2017 10:30-0400 BP Systolic 115 mm[Hg] Rosalba Dupont MD [facility] 06-20-2017 10:30-0400 Height 165.1 cm Rosalba Dupont MD [facility] 06-20-2017 10:30-0400 Pulse (Heart Rate) 81 /min Rosalba Dupont MD [facility] 06-20-2017 10:30-0400 Respiratory Rate 16 /min Rosalba Dupont MD [facility] 06-20-2017 10:30-0400 Weight 66.04 kg Rosalba Dupont MD [facility] 05-06-2017 09:13-0400 BMI (Body Mass Index) 23.66 kg/m2 Rosalba Dupont MD [facility] 05-06-2017 09:13-0400 Body Temperature 98.5 [degF] Rosalba Dupont MD [facility] 05-06-2017 09:13-0400 Body Temperature 98.49 [degF] Rosalba Dupont MD [facility] 05-06-2017 09:13-0400 BP Diastolic 72 mm[Hg] Rosalba Dupont MD [facility] 05-06-2017 09:13-0400 BP Systolic 105 mm[Hg] Rosalba Dupont MD [facility] 05-06-2017 09:13-0400 Height 165.1 cm Rosalba Dupotn MD [facility] 05-06-2017 09:13-0400 Pulse (Heart Rate) 72 /min Rosalba Dupont MD [facility] 05-06-2017 09:13-0400 Respiratory Rate 16 /min Rosalba Dupont MD [facility] 05-06-2017 09:13-0400 Weight 64.5 kg Rosalba Dupont MD [facility] 12-27-2010 18:02-0400 Body Temperature 98.6 [degF] Jen Arredondo RN RN [facility] Work Phone: 12-27-2010 18:02-0400 BP Diastolic 70 mm[Hg] Jen Arredondo RN RN [facility] Work Phone: 12-27-2010 18:02-0400 BP Systolic 120 mm[Hg] Jen Arredondo RN RN [facility] Work Phone: 12-27-2010 18:02-0400 Pulse (Heart Rate) 84 /min Jen Arredondo RN RN [facility] Work Phone: 12-27-2010 18:02-0400 Respiratory Rate 16 /min Jen Arredondo RN RN [facility] Work Phone: 12-27-2010 18:02-0400 Weight 66.59 kg Jen Arredondo RN RN [facility] Work Phone: Encounters Encounter Date Encounter Type Care Provider Facility Start: 04-07-2024 End: 04-07-2024 ambulatory MD [facility] pital Procedures Date Procedure Procedure Detail Performing Clinician Start: 09-06-2017 End: 09-06-2017 Routine OB Visit (Global) Rosalba singh MD Work Phone: Start: 09-06-2017 End: 09-06-2017 Routine OB Visit (Global) Rosalba singh MD Work Phone: Start: 07-29-2017 End: 07-29-2017 Routine OB Visit (Global) Rosalba singh MD Work Phone: Start: 07-29-2017 End: 07-29-2017 Antibody screen Rosalba Mckeon Start: 07-29-2017 End: 07-29-2017 Routine OB Visit (Global) Rosalba singh MD Work Phone: Start: 07-15-2017 End: 07-30-2017 *CBC with Differential Rosalba floyd MD Work Phone: Start: 07-15-2017 End: 07-30-2017 *GC/Chlamydia Rosalba Dupont MD Work Phone: Start: 07-15-2017 End: 07-30-2017 *HEBSAG - Hep B Surface Antigen 6510 Rosalba Dupont MD Work Phone: Start: 07-15-2017 End: 07-30-2017 *HIV antibody Rosalba Dupont MD Work Phone: Start: 07-15-2017 End: 07-30-2017 *TS Type and Screen Rosalba Dupont MD Work Phone: Start: 07-15-2017 End: 07-30-2017 Bacteria identified in Urine by Culture Rosalba Dupont MD Work Phone: Start: 07-15-2017 End: 08-04-2017 Reagin Ab [Presence] in Serum by RPR Rosalba Dupont MD Work Phone: Start: 07-15-2017 End: 07-17-2017 Routine OB Visit (Global) Rosalba singh MD Work Phone: Start: 07-15-2017 End: 07-30-2017 Rubella virus Ab [Units/volume] in Serum Rosalba Dupont MD Work Phone: Start: 07-15-2017 End: 07-30-2017 Us preg uterus after 1st trimest 10/07 gestation Rosalba Dupont MD Work Phone: Start: 07-15-2017 End: 07-30-2017 *CBC with Differential Rosalba floyd MD Work Phone: Start: 07-15-2017 End: 07-30-2017 *GC/Chlamydia Rosalba Dupont MD Work Phone: Start: 07-15-2017 End: 07-30-2017 *HEBSAG - Hep B Surface Antigen 6510 Rosalba Dupont MD Work Phone: Start: 07-15-2017 End: 07-30-2017 *HIV antibody Rosalba Dupont MD Work Phone: Start: 07-15-2017 End: 07-30-2017 *TS Type and Screen Rosalba Dupont MD Work Phone: Start: 07-15-2017 End: 07-30-2017 Ob us >/= 14 wks, sngl fetus Rosalba jenkins MD Work Phone: Start: 07-15-2017 End: 08-04-2017 Reagin antibody presence Rosalba gupta MD Work Phone: Start: 07-15-2017 End: 07-17-2017 Routine OB Visit (Global) Rosalba singh MD Work Phone: Start: 07-15-2017 End: 07-30-2017 Rubella virus Ab [Units/volume] in Serum Rosalba Dupont MD Work Phone: Start: 07-15-2017 End: 07-30-2017 Urine culture, bacteria Rosalba velasco MD Work Phone: Start: 06-27-2017 End: 06-27-2017 Routine OB Visit (Global) Rosalba singh MD Work Phone: Start: 06-27-2017 End: 06-27-2017 Us uterus limited 1/> fetuses Rosalba Dupont MD Work Phone: Start: 06-27-2017 End: 06-27-2017 Ob us, limited, fetus(s) Rosalba gupta MD Work Phone: Start: 06-27-2017 End: 06-27-2017 Routine OB Visit (Global) Rosalba singh MD Work Phone: Start: 06-21-2017 End: 06-21-2017 Urinalysis Rosalba Mckeon Start: 06-20-2017 End: 06-21-2017 *UA - Urinalysis w/o Micro Rosalba melton MD Work Phone: Start: 06-20-2017 End: 06-20-2017 Us uterus limited 1/> fetuses Rosalba Dupont MD Work Phone: Start: 06-20-2017 End: 06-21-2017 *UA - Urinalysis w/o Micro Rosalba melton MD Work Phone: Start: 06-20-2017 End: 06-20-2017 Ob us, limited, fetus(s) Rosalba gupta MD Work Phone: Start: 06-11-2017 End: 06-12-2017 Choriogonadotropin.beta subunit [Units/volume] in Serum or Plasma Rosalba Dupont MD Work Phone: Start: 06-11-2017 End: 06-12-2017 B-HCG Rosalba Dupont MD Work Phone: Start: 05-06-2017 End: 05-08-2017 Lupus Anticoagulant Evaluation w/Reflex Rosalba Dupont MD Work Phone: Start: 05-06-2017 End: 05-06-2017 Thyrotropin [Units/volume] in Serum or Plasma Rosalba Dupont MD Work Phone: Start: 05-06-2017 End: 05-08-2017 Lupus Anticoagulant Evaluation w/Reflex Rosalba Dupont MD Work Phone: Start: 05-06-2017 End: 05-06-2017 Thyroid stimulating hormone (TSH) Rosalba Dupont MD Work Phone: Start: 05-03-2017 End: 05-04-2017 Choriogonadotropin ( test) [Presence] in Serum or Plasma Rosalba Dupont MD Work Phone: Start: 05-03-2017 End: 05-04-2017 Choriogonadotropin ( test) [Presence] in Serum or Plasma Rosalba Dupont MD Work Phone: Plan of Treatment Date Care Activity Detail Author Start: 09-06-2017 End: 09-06-2017 Appointment Appointment [facility] Start: 07-29-2017 End: 07-29-2017 Appointment Appointment [facility] Start: 07-15-2017 End: 07-30-2017 *CBC with Differential *CBC with Differential [facility] Start: 07-15-2017 End: 07-30-2017 *GC/Chlamydia *GC/Chlamydia [facility] Start: 07-15-2017 End: 07-30-2017 *HEBSAG - Hep B Surface Antigen 6510 *HEBSAG - Hep B Surface Antigen 6510 [facility] Start: 07-15-2017 End: 07-30-2017 *HIV antibody *HIV antibody [facility] Start: 07-15-2017 End: 07-30-2017 *TS Type and Screen *TS Type and Screen [facility] Start: 07-15-2017 End: 07-30-2017 Reagin antibody presence *[facility] Start: 07-15-2017 End: 07-30-2017 Rubella virus Ab [Units/volume] in Serum *Rubella Screen [facility] Start: 07-15-2017 End: 07-30-2017 Urine culture, bacteria *CUUR - Culture, Urine ([place] Count) [facility] Start: 07-15-2017 End: 07-30-2017 Us preg uterus after 1st trimest 1/1st gestation US OB, >14 weeks [facility] Start: 07-15-2017 End: 07-15-2017 Appointment Appointment [facility] Start: 07-15-2017 End: 07-30-2017 *CBC with Differential *CBC with Differential [facility] Start: 07-15-2017 End: 07-30-2017 *GC/Chlamydia *GC/Chlamydia [facility] Start: 07-15-2017 End: 07-30-2017 *HEBSAG - Hep B Surface Antigen 6510 *HEBSAG - Hep B Surface Antigen 6510 [facility] Start: 07-15-2017 End: 07-30-2017 *HIV antibody *HIV antibody [facility] Start: 07-15-2017 End: 07-30-2017 *TS Type and Screen *TS Type and Screen [facility] Start: 07-15-2017 End: 07-30-2017 Ob us >/= 14 wks, sngl fetus US OB, >14 weeks [facility] Start: 07-15-2017 End: 07-30-2017 Reagin antibody presence *[facility] Start: 07-15-2017 End: 07-30-2017 Rubella virus Ab [Units/volume] in Serum *Rubella Screen [facility] Start: 07-15-2017 End: 07-30-2017 Urine culture, bacteria *CUUR - Culture, Urine ([place] Count) [facility] Start: 06-27-2017 End: 06-27-2017 Appointment Appointment [facility] Start: 06-20-2017 End: 06-21-2017 *UA - Urinalysis w/o Micro *UA - Urinalysis w/o Micro [facility] Start: 06-20-2017 End: 06-20-2017 Appointment Appointment [facility] Start: 06-20-2017 End: 06-21-2017 *UA - Urinalysis w/o Micro *UA - Urinalysis w/o Micro [facility] Start: 06-11-2017 End: 06-12-2017 HCG.beta subunit Qn *HCGT - HCG Titer Quant., Serum [facility] Start: 06-11-2017 End: 06-12-2017 B-HCG *HCGT - HCG Titer Quant., Serum [facility] Start: 05-06-2017 End: 05-08-2017 Lupus Anticoagulant Evaluation w/Reflex Lupus Anticoagulant Evaluation w/Reflex [facility] Start: 05-06-2017 End: 05-06-2017 Thyroid stimulating hormone (TSH) *TSH [facility] Start: 05-06-2017 End: 05-08-2017 Lupus Anticoagulant Evaluation w/Reflex Lupus Anticoagulant Evaluation w/Reflex [facility] Start: 05-06-2017 End: 05-06-2017 Thyroid stimulating hormone (TSH) *TSH [facility] Start: 05-03-2017 End: 05-04-2017 HCG ( test) Ql *PREGS - Qualitative, Serum [facility] Start: 05-03-2017 End: 05-04-2017 Choriogonadotropin ( test) [Presence] in Serum or Plasma *PREGS - Qualitative, Serum [facility] Work Phone: Payers Date Payer Category Payer Unknown [id number] Unknown [id number] Summary Purpose Family History No Family History Records Found Advance Directives No Advanced Directives Records Found Additional Source Comments INFORMATION SOURCE (unrecogn ized section and content) DATE CREATED AUTHOR 04/08/2024 [facility] FOR RECORDS PERTAINING TO PATIENTS WHO ARE OR HAVE BEEN ENROLLED IN A CHEMICAL DEPENDENCY/SUBSTANCEABUSE PROGRAM, SOME INFORMATION MAY BE OMITTED. This clinical summary was aggregated from multiple sources. Caution should be exercised in using it in the provision of clinical care. This summary normalizes information from multiple sources, and as a consequence, information in this document may materially change the coding, format and clinical context of patient data. In addition, data may be omitted in some cases. CLINICAL DECISIONS SHOULD BE BASED ON THE PRIMARY CLINICAL RECORDS. [email or web address] provides no warranty or guarantee of the accuracy or completeness of information in this document.
[2024-08-26] MEDS: Lactated Ringers 1,000 ML 50 ML IV (07:45)
--- OUTSIDE RECORDS SUMMARY | 2024-08-26 07:46 | XMS RPT_ITS | CCD ---
Author Organization [facility] Inform ion [facility] Care Team Providers Care Primary Special Educator Name Role Phone Rosalba Dupont MD Unavailable [phone] MICHELLE Arredondo RN, Jen Bernal Unavailable Brady Arredondo RN RN, Jen Bernal Unavailable Jayshree Sherman Unavailable Unavailable Rosalba Dupont MD Unavailable [phone] MICHELLE Arredondo RN, Jen Bernal Unavailable Brady READ PRIMARY CAREMD Primary Care Unavailable ROSALBA DUPONT Referring KHALIDA Warner Attending Unavailable Allergies Allergy Classification Reported Allergen(s) Allergy Type Date of Onset Reaction(s) Facility (20 sources) brompheniramine/ phenylpropanolam ine drug allergy 12-27-2010 [facility] Work Phone: (20 sources) codeine drug allergy 12-27-2010 [facility] Work Phone: Medications Completed/Discontinued Medications Medication Drug Class(es) Dates Sig (Normalized) Sig (Original) azithromycin 250 mg oral tablet (20 sources) Macrolide Antimicrobial Start: 12-27-2010 End: 01-01-2011 ZITHROMAX 250 MG TABS Take two (2 ) tablets day one, then one (1) tablet a day for four (4) more days AZITHROMYCIN [id number] Jeri Little PA-C PLEXUS (20 sources) Start: 05-06-2017 PLEXUS PLEXUS Rosalba Dupont MD Start: 05-06-2017 PLEXUS PLEXUS Rosalba Dupont MD VIT-FE FUMARATE-FA (2 sources) Start: 06-20-2017 VITAM INS 28-0.8 MG TABS VIT-FE FUMARATE-FA [id number] Rosalba Dupont MD Start: 06-20-2017 VITAM INS 28-0.8 MG TABS VIT-FE FUMARATE-FA [id number] Rosalba Dupont MD VIT-FE FUMARATE-FA (9 sources) Start: 06-20-2017 VITAM INS 28-0.8 MG TABS VIT-FE FUMARATE-FA [id number] Rosalba Dupont MD VIT-FE FUMARATE-FA (5 sources) Start: 06-20-2017 VITAM INS 28-0.8 MG TABS VIT-FE FUMARATE-FA [id number] Rosalba Dupont MD Start: 06-20-2017 VITAM INS 28-0.8 MG TABS VIT-FE FUMARATE-FA [id number] Rosalba Dupont MD Problems Active Problems Problem [...] current medications (procedure) Done Invalid Interpretation Code [facility] Urine, glucose presence N Invalid Interpretation Code [facility] Urine, protein N Invalid Interpretation Code [facility] Lab Report: Rapid Plasmin Re agin (RPR)on 08-02-2017 Reagin antibody presence NONREACTIVE Invalid Interpretation Code NONREACTIVE [facility] Lab Report: HIV Screen 4TH G EN W/Confirmon 07-30-2017 GE use only - for LinkLogic import when terms are not otherwise specified Non Reactive Invalid Interpretation Code Non Reactive [facility] HIV1/0/2 SCREEN Non Reactive Invalid Interpretation Code Non Reactive [facility] Lab Report: Hepatitis B Surf carolin Agon 07-30-2017 BSA (Body Surface Area) Negative Invalid Interpretation Code Negative [facility] HBV surface Ag Ql (S) Negative Invalid Interpretation Code Negative [facility] Lab Report: CBC W/Diff, Auto matedon 07-29-2017 Absolute Neut 4.1 X10 3/UL Invalid Interpretation Code 2.0-7.7 [facility] Basophils/100 WBC Auto (Bld) 0.2 % Invalid Interpretation Code 0-1 [facility] Eosinophils/100 WBC Auto (Bld) 0.2 % Invalid Interpretation Code 0-5 [facility] Erythrocyte distribution width Auto Ratio (RBC) 13.0 % Invalid Interpretation Code 11.6-14.6 [facility] Erythrocyte distribution width Auto Ratio (RBC) 39.8 fL Invalid Interpretation Code 35.1-43.9 [facility] Hematocrit Auto Volume Fraction (Bld) 37.5 % Invalid Interpretation Code 37-47 [facility] Hemoglobin mass conc (Bld) 13.3 g/dL Invalid Interpretation Code 12.0-15.0 [facility] Immature granulocytes #/vol (Bld) 0.400 % Invalid Interpretation Code 0.0-0.9 [facility] immature granulocytes, percentage of total cells, blood 0.400 % Invalid Interpretation Code 0.0-0.9 [facility] Immature granulocytes/100 WBC (Bld) 0.400 % Invalid Interpretation Code 0.0-0.9 [facility] Lymphocytes Auto #/vol (Bld) 1.17 X10 3/UL Invalid Interpretation Code 0.83-4.51 [facility] Lymphocytes/100 WBC Auto (Bld) 20.8 % Invalid Interpretation Code 19-41 [facility] MCH Auto Entitic mass (RBC) 30.3 pg Invalid Interpretation Code 27.0-32.0 [facility] MCHC Auto mass conc (RBC) 35.5 G/GL Invalid Interpretation Code 32-36 [facility] MCV Auto Entitic volume (RBC) 85.4 fL Invalid Interpretation Code 81-99 [facility] Monocytes/100 WBC Auto (Bld) 5.0 % Invalid Interpretation Code 0-10 [facility] neutrophil count, blood 4.1 X10 3/UL Invalid Interpretation Code 2.0-7.7 [facility] Neutrophils Auto #/vol (Bld) 4.1 X10 3/UL Invalid Interpretation Code 2.0-7.7 [facility] Neutrophils/100 WBC Auto (Bld) 73.4 % High 47-70 [facility] Platelet mean volume Peter-Kemi Entitic volume (Bld) 10.1 fL Invalid Interpretation Code 6.2-12.0 [facility] Platelets Auto #/vol (Bld) 218 10*3/mm3 Invalid Interpretation Code 150-450 [facility] RBC Auto #/vol (Bld) 4.39 10*6/uL Invalid Interpretation Code 4.2-5.4 [facility] RDW SD 39.8 fL Invalid Interpretation Code 35.1-43.9 [facility] red blood cell distribution width, size density 39.8 fL Invalid Interpretation Code 35.1-43.9 [facility] WBC Auto #/vol (Bld) 5.6 10*3/uL Invalid Interpretation Code 4.4-11.0 [facility] Lab Report: Rubella IgGon Rubella IgG 30.4 [iU]/mL Invalid Interpretation Code [facility] rubella virus antibody, IgG 30.4 [iU]/mL Invalid Interpretation Code [facility] Office Visit: OB Routineon 1 Albumin Ql (U) N Invalid Interpretation Code [facility] Documentation of current medications (procedure) Done Invalid Interpretation Code [facility] Glucose Test strip mass conc (U) N Invalid Interpretation Code [facility] Protein mass conc Done Invalid Interpretation Code [facility] Urine, glucose presence N Invalid Interpretation Code [facility] Urine, protein N Invalid Interpretation Code [facility] Lab Report: CT/NG WCH BY PCR on 07-15-2017 C. trachomatis DNA ZAHEER+probe Ql (U) Negative Invalid Interpretation Code Negative [facility] N. gonorrhoeae DNA ZAHEER+probe Ql (Unsp spec) Negative Invalid Interpretation Code Negative [facility] Office Visit: OB Initialon 1 crown rump length by ultrasound 26 mm Invalid Interpretation Code [facility] Documentation of current medications (procedure) Done Invalid Interpretation Code [facility] estimated date of confinement by sonogram 02/12/[address] [facility] Fall risk assessment No Invalid Interpretation Code [facility] cardiac activity by sonography Yes Invalid Interpretation Code [facility] number by ultrasound [address] [facility] gestational age by ultrasound 9W 5D Invalid Interpretation Code [facility] Herpes Simplex Virus Genital no Invalid Interpretation Code [facility] OB ultrasound, gestational sac Yes Invalid Interpretation Code [facility] Tobacco smoking status ORIS Never Invalid Interpretation Code [facility] Tobacco smoking status ORIS Tobacco smoking status ORIS Invalid Interpretation Code [facility] Tobacco smoking status ORIS Never smoker Invalid Interpretation Code [facility] Tobacco use HS Never smoker Invalid Interpretation Code [facility] Office Visit: OB Routineon 0 06-27-2017 Documentation of current medications (procedure) Done Invalid Interpretation Code [facility] estimated date of confinement by sonogram 02/18/[address] [facility] cardiac activity by sonography Yes Invalid Interpretation Code [facility] number by ultrasound [address] [facility] OB ultrasound, gestational sac Yes Invalid Interpretation Code [facility] Protein mass conc Done Invalid Interpretation Code [facility] Lab Report: Urinalysis, Rout ine (Dipstick)on 06-21-2017 Albumin Ql (U) Negative Invalid Interpretation Code Negative [facility] Bilirubin Ql (U) Negative Invalid Interpretation Code Negative [facility] Clarity Nom (U) Clear Invalid Interpretation Code Clear [facility] Color Nom (U) Straw Invalid Interpretation Code Yellow [facility] Glucose Ql (U) Normal mg/dl Invalid Interpretation Code Normal [facility] Ketones mass conc (U) Negative Invalid Interpretation Code Negative [facility] Leukocyte esterase Test strip Ql (U) Negative Invalid Interpretation Code Negative [facility] NITRITE UR Negative Invalid Interpretation Code Negative [facility] Nitrite Urine Negative Invalid Interpretation Code Negative [facility] Occult Blood, urine Negative Invalid Interpretation Code Negative [facility] OCCULT BLOOD-UR Negative Invalid Interpretation Code Negative [facility] pH (U) 7.0 [pH] 5.0 - 8.0 [facility] Specific gravity Refractometry Relative Density (U) 1.005 Invalid Interpretation Code 1.002-1.030 [facility] Urine, bilirubin presence Negative Invalid Interpretation Code Negative [facility] Urine, ketones presence Negative Invalid Interpretation Code Negative [facility] Urine, pH 7.0 [pH] Invalid Interpretation Code 5.0 - 8.0 [facility] Urine, protein Negative Invalid Interpretation Code Negative [facility] UROBILI Normal mg/dl Invalid Interpretation Code Normal [facility] urobilinogen, urine, by dipstick Normal mg/dl Invalid Interpretation Code Normal [facility] Office Visit: OB Initialon 0 06-20-2017 Documentation of current medications (procedure) Done Invalid Interpretation Code [facility] estimated date of confinement by sonogram 02/23/[address] [facility] Fall risk assessment No Invalid Interpretation Code [facility] cardiac activity by sonography No Invalid Interpretation Code [facility] number by ultrasound [address] [facility] gestational age by ultrasound 4W 4D Invalid Interpretation Code [facility] OB ultrasound, gestational sac Yes Invalid Interpretation Code [facility] Protein mass conc Done [facility] Tobacco smoking status NHIS Never Invalid Interpretation Code [facility] Tobacco smoking status NHIS Never smoker Invalid Interpretation Code [facility] Tobacco use CPHS Never smoker Invalid Interpretation Code [facility] Lab Report: hCG Titer Quant. , Serumon 06-13-2017 B-HCG 830 m[IU]/mL High <9 non-preg [facility] Lab Report: hCG Titer Quant. , Serumon 06-11-2017 B-HCG 296 m[IU]/mL High <9 non-preg [facility] Lab Report: Miscellaneous La b Procedureon 05-08-2017 GE use only - for LinkLogic import when terms are not otherwise specified . Invalid Interpretation Code [facility] MISC LAB TEST . Invalid Interpretation Code [facility] Lab Report: Thyroid Stim Hor aby (TSH)on 05-06-2017 Thyrotropin Qn 1.73 u[iU]/mL Invalid Interpretation Code 0.358-3.74 [facility] Office Visit: Discuss M/Con 05-06-2017 Documentation of current medications (procedure) Done Invalid Interpretation Code [facility] Fall risk assessment No [facility] Protein mass conc Done [facility] Tobacco smoking status NHIS Never [facility] Tobacco smoking status NHIS Never smoker [facility] Tobacco use CPHS Never smoker Invalid Interpretation Code [facility] Lab Report: ,Serum, hCG Quali.on 05-03-2017 B-HCG 8 m[IU]/mL Invalid Interpretation Code =>Qualitative [facility] Work Phone: Replaced Document: (P) Pregn diana,Serum,hCG Quali.on 05-03-2017 beta HCG, serum, qualitative Negative Invalid Interpretation Code 0-9 Nonpreg [facility] Work Phone: Office Visit: sinus congesti onon 12-27-2010 Tobacco use CPHS never Invalid Interpretation Code [facility] Work Phone: Vital Signs Date Time Vital Sign Value Performing Clinician Seb holman 09-06-2017 12:10-0500 BMI (Body Mass Index) 25.79 kg/m2 Rosalba Dupont MD [facility] 09-06-2017 12:10-0500 BP Diastolic 69 mm[Hg] Rosalba Dupont MD [facility] 09-06-2017 12:10-0500 BP Systolic 108 mm[Hg] Rosalba Dupont MD [facility] 09-06-2017 12:10-0500 Weight 70.31 kg Rosalba Dupont MD [facility] 07-29-2017 10:50-0400 BMI (Body Mass Index) 25.42 kg/m2 Rosalba Dupont MD [facility] 07-29-2017 10:50-0400 Body Temperature 99.4 [degF] Rosalba Dupont MD [facility] 07-29-2017 10:50-0400 BP Diastolic 67 mm[Hg] Rosalba Dupont MD [facility] 07-29-2017 10:50-0400 BP Systolic 104 mm[Hg] Rosalba Dupont MD [facility] 07-29-2017 10:50-0400 Pulse (Heart Rate) 76 /min Rosalba Dupont MD [facility] 07-29-2017 10:50-0400 Respiratory Rate 16 /min Rosalba Dupont MD [facility] 07-29-2017 10:50-0400 Weight 69.31 kg Rosalba Dupont MD [facility] 07-15-2017 11:25-0400 BMI (Body Mass Index) 25.06 kg/m2 Rosalba Dupont MD [facility] 07-15-2017 11:25-0400 BP Diastolic 70 mm[Hg] Rosalba Dupont MD [facility] 07-15-2017 11:25-0400 BP Systolic 105 mm[Hg] Rosalba Dupont MD [facility] 07-15-2017 11:25-0400 Height 165.1 cm Rosalba Dupont MD [facility] 07-15-2017 11:25-0400 Pulse (Heart Rate) 80 /min Rosalba Dupont MD [facility] 07-15-2017 11:25-0400 Weight 68.31 kg Rosalba Dupont MD [facility] 06-27-2017 05:51-0400 BMI (Body Mass Index) 24.33 kg/m2 Rosalba Dupont MD [facility] 06-27-2017 05:51-0400 Body Temperature 97.4 [degF] Rosalba Dupont MD [facility] 06-27-2017 05:51-0400 BP Diastolic 67 mm[Hg] Rosalba Dupont MD [facility] 06-27-2017 05:51-0400 BP Systolic 114 mm[Hg] Rosalba Dupont MD [facility] 06-27-2017 05:51-0400 Pulse (Heart Rate) 93 /min Rosalba Dupont MD [facility] 06-27-2017 05:51-0400 Respiratory Rate 16 /min Rosalba Dupont MD [facility] 06-27-2017 05:51-0400 Weight 66.32 kg Rosalba Dupont MD [facility] 06-20-2017 10:30-0400 BMI (Body Mass Index) 24.23 kg/m2 Rosalba Dupont MD [facility] 06-20-2017 10:30-0400 Body Temperature 97.9 [degF] Rosalba Dupont MD [facility] 06-20-2017 10:30-0400 BP Diastolic 68 mm[Hg] Rosalba Dupont MD [facility] 06-20-2017 10:30-0400 BP Systolic 115 mm[Hg] Rosalba Dupont MD [facility] 06-20-2017 10:30-0400 Height 165.1 cm Rosalba Dupont MD [facility] 06-20-2017 10:30-0400 Pulse (Heart Rate) 81 /min Rosalba Dupont MD [facility] 06-20-2017 10:30-0400 Respiratory Rate 16 /min Rosalba Dupont MD [facility] 06-20-2017 10:30-0400 Weight 66.04 kg Rosalba Dupont MD [facility] 05-06-2017 09:13-0400 BMI (Body Mass Index) 23.66 kg/m2 Rosalba Dupont MD [facility] 05-06-2017 09:13-0400 Body Temperature 98.5 [degF] Rosalba Dupont MD [facility] 05-06-2017 09:13-0400 Body Temperature 98.49 [degF] Rosalba Dupont MD [facility] 05-06-2017 09:13-0400 BP Diastolic 72 mm[Hg] Rosalba Dupont MD [facility] 05-06-2017 09:13-0400 BP Systolic 105 mm[Hg] Rosalba Dupont MD [facility] 05-06-2017 09:13-0400 Height 165.1 cm Rosalba Dupont MD [facility] 05-06-2017 09:13-0400 Pulse (Heart Rate) 72 /min Rosalba Dupont MD [facility] 05-06-2017 09:13-0400 Respiratory Rate 16 /min Rosalba Dupont MD [facility] 05-06-2017 09:13-0400 Weight 64.5 kg Rosalba Dupont MD [facility] 12-27-2010 18:02-0400 Body Temperature 98.6 [degF] Jen Arredondo RN RN [facility] Work Phone: 12-27-2010 18:02-0400 BP Diastolic 70 mm[Hg] Jen Arredondo RN RN [facility] Work Phone: 12-27-2010 18:02-0400 BP Systolic 120 mm[Hg] Jen Arredondo RN RN [facility] Work Phone: 12-27-2010 18:02-0400 Pulse (Heart Rate) 84 /min Jen Arredondo RN RN [facility] Work Phone: 12-27-2010 18:02-0400 Respiratory Rate 16 /min Jen Arredondo RN RN [facility] Work Phone: 12-27-2010 18:02-0400 Weight 66.59 kg Jen Arredondo RN RN [facility] Work Phone: Encounters Encounter Date Encounter Type Care Provider Facility Start: 04-07-2024 End: 04-07-2024 ambulatory MD READ [facility] pital Procedures Date Procedure Procedure Detail Performing [...] 07-15-2017 End: 07-30-2017 *TS Type and Screen Roaslba Dupont MD Work Phone: Start: 07-15-2017 End: [...] Author Start: 09-06-2017 End: 09-06-2017 Appointment Appointment [facility] Start: 07-29-2017 End: 07-29-2017 Appointment Appointment [facility] Start: 07-15-2017 End: 07-30-2017 *CBC with Differential *CBC with Differential [facility] Start: 07-15-2017 End: 07-30-2017 *GC/Chlamydia *GC/Chlamydia [facility] Start: 07-15-2017 End: 07-30-2017 *HEBSAG - Hep B Surface Antigen 6510 *HEBSAG - Hep B Surface Antigen 6510 [facility] Start: 07-15-2017 End: 07-30-2017 *HIV antibody *HIV antibody [facility] Start: 07-15-2017 End: 07-30-2017 *TS Type and Screen *TS Type and Screen [facility] Start: 07-15-2017 End: 07-30-2017 Reagin antibody presence *RPR [facility] Start: 07-15-2017 End: 07-30-2017 Rubella virus Ab [Units/volume] in Serum *Rubella Screen [facility] Start: 07-15-2017 End: 07-30-2017 Urine culture, bacteria *CUUR - Culture, Urine ([place] Count) [facility] Start: 07-15-2017 End: 07-30-2017 Us preg uterus after 1st trimest 1/1st gestation US OB, >14 weeks [facility] Start: 07-15-2017 End: 07-15-2017 Appointment Appointment [facility] Start: 07-15-2017 End: 07-30-2017 *CBC with Differential *CBC with Differential [facility] Start: 07-15-2017 End: 07-30-2017 *GC/Chlamydia *GC/Chlamydia [facility] Start: 07-15-2017 End: 07-30-2017 *HEBSAG - Hep B Surface Antigen 6510 *HEBSAG - Hep B Surface Antigen 6510 [facility] Start: 07-15-2017 End: 07-30-2017 *HIV antibody *HIV antibody [facility] Start: 07-15-2017 End: 07-30-2017 *TS Type and Screen *TS Type and Screen [facility] Start: 07-15-2017 End: 07-30-2017 Ob us >/= 14 wks, sngl fetus US OB, >14 weeks [facility] Start: 07-15-2017 End: 07-30-2017 Reagin antibody presence *RPR [facility] Start: 07-15-2017 End: 07-30-2017 Rubella virus Ab [Units/volume] in Serum *Rubella Screen [facility] Start: 07-15-2017 End: 07-30-2017 Urine culture, bacteria *CUUR - Culture, Urine ([place] Count) [facility] Start: 06-27-2017 End: 06-27-2017 Appointment Appointment [facility] Start: 06-20-2017 End: 06-21-2017 *UA - Urinalysis w/o Micro *UA - Urinalysis w/o Micro [facility] Start: 06-20-2017 End: 06-20-2017 Appointment Appointment [facility] Start: 06-20-2017 End: 06-21-2017 *UA - Urinalysis w/o Micro *UA - Urinalysis w/o Micro [facility] Start: 06-11-2017 End: 06-12-2017 HCG.beta subunit Qn *HCGT - HCG Titer Quant., Serum [facility] Start: 06-11-2017 End: 06-12-2017 B-HCG *HCGT - HCG Titer Quant., Serum [facility] Start: 05-06-2017 End: 05-08-2017 Lupus Anticoagulant Evaluation w/Reflex Lupus Anticoagulant Evaluation w/Reflex [facility] Start: 05-06-2017 End: 05-06-2017 Thyroid stimulating hormone (TSH) *TSH [facility] Start: 05-06-2017 End: 05-08-2017 Lupus Anticoagulant Evaluation w/Reflex Lupus Anticoagulant Evaluation w/Reflex [facility] Start: 05-06-2017 End: 05-06-2017 Thyroid stimulating hormone (TSH) *[facility] [facility] Start: 05-03-2017 End: 05-04-2017 HCG ( test) Ql *PREGS - Qualitative, Serum [facility] Start: 05-03-2017 End: 05-04-2017 Choriogonadotropin ( test) [Presence] in Serum or Plasma *PREGS - Qualitative, Serum [facility] Work Phone: Payers Date Payer Category Payer Unknown [id number] Unknown [id number] Summary Purpose Family History No Family History Records Found Advance Directives No Advanced Directives Records Found Additional Source Comments INFORMATION SOURCE (unrecogn ized section and content) DATE CREATED AUTHOR 04/08/2024 [facility] FOR RECORDS PERTAINING TO PATIENTS WHO ARE [...] BE BASED ON THE PRIMARY CLINICAL RECORDS. [employer] provides no warranty or guarantee of the accuracy or completeness of information in this document.
[2024-08-26 08:19] LABS: Absolute Lymphocyte Count 1.67 X10^3/uL (0.83-4.51); Absolute Neutrophil Count 5.2 X10^3/uL (2.0-7.7); Basophil# 0.03 X10^3/uL; Basophil% 0.4 % (0-1); Eosinophil# 0.06 X10^3/uL; Eosinophils% 0.8 % (0-5); Hematocrit 34.6 % (37-47); Lymphocyte # 1.67 X10^3/ul (0.83-4.51); Lymphocyte % 22.4 % (19-41); Mean Corp Hgb Conc 34.7 g/dL (32-36); Mean Corpuscular Hgb 29.6 pg (27.0-32.0); Mean Corpuscular Volume 85.4 fL (81-99); Mean Platelet Vol. 10.5 fl (6.2-12.0); Monocyte# 0.43 X10^3/uL; Monocyte% 5.8 % (0-10); NRBC Flagged by Analyzer 0 % (0-5); Neutrophil # 5.17 X10^3/uL (2.7-7.7); Neutrophil % 69.3 % (47-70); Platelet Count 198 K/mm3 (150-450); RBC Distribution Width CV 12.6 % (11.6-14.6); RBC Distribution Width SD 38.7 fl (35.1-43.9); Red Blood Count 4.05 M/mm3 (4.2-5.4); White Blood Count 7.5 K/mm3 (4.4-11.0)
[2024-08-26] MEDS: Oxytocin 15 Units/NS 250ml 15 UNITS/250 ML IV.SOLN 2 UNITS IV (08:38)
[2024-08-26] MEDS: Penicillin G Pot 5,000,000 UNITS in 0.9% Normal Saline (100mL MB+) 100 ML 150 UNITS IV (08:51)
[2024-08-26 10:45] LABS: Syphilis Antibodies Non-reactive
[2024-08-26] MEDS: Penicillin G 3,000,000 Units 50 ML 100 UNITS IV (12:39)
[2024-08-26] MEDS: Lactated Ringers 1,000 ML 999 ML IV (14:33)
[2024-08-26] MEDS: Lidocaine 1% (20 ml mdv) 20 ML Vial INFILT (15:35)
[2024-08-26] MEDS: Oxytocin 15 Units/NS 250ml 15 UNITS/250 ML IV.SOLN 83 UNITS IV (16:16)
[2024-08-26] MEDS: Naproxen 500 MG Tablet PO (16:17)
--- NOTE | 2024-08-26 17:31 | HP.PCM.OB_ITS ---
HPI - General General Date of Admission: 08/26/24 HPI Narrative LATRICIA DONALDSON, is a 34 F who presents for induction of labor secondary to postdates. she denies any vb lof admits good fm irregular ctx Maternal Data Information CIRO Calculator Estimated Delivery Date Method Current WG Current Estimate 08/20/24 LMP (Certain) 40w 6d PFSH PFSH Medical History (Updated 08/26/24 @ 17:[address] Rosalba Dupont MD) Post-dates Positive GBS test Home Medications ?Medication ?Instructions ?Recorded ?Last Taken ?Type multivitamin no.47-iron fum 27 1 cap PO DAILY 12/27/23 Unknown History mg-folate no.1 1 mg-dha 300 mg capsule (PNV-DHA) Allergy/AdvReac Type Severity Reaction Status Date / Time codeine Allergy Nausea/Vom/ Verified 08/26/24 08:21 Diarrhea Family History Grandmother Heart disease Maternal Surgical History (Updated 08/26/24 @ 08:17 by Tamra Iniguez) [place] teeth extracted S/P bunionectomy History of thyroid surgery Social History adopted: No household members: spouse and children number of children: 2 current occupational status: employed current occupation: self employed current occupational exposures/hazards: No pets and animals: Yes (avoid litter box ) pets and animals: cat(s) history of recent travel: No sexually active: Yes Smoking Status: Never smoker alcohol intake: current alcohol intake frequency: holidays/special occasions only details: not while substance use type: does not use well-balanced diet: daily or most days caffeine: Yes Type: coffee Number of servings: 1 eating out: rarely or never during the past year weight has: remained stable what type of physical activity do you participate in: walking and weight training duration: 30-45 minutes/day yrn/scientologist: [employer] seatbelt use: always do you feel safe at home: Yes additional social history: Sujata [place] History 7 Elective abortions Hx Para 2 Spontaneous abortions 4 Hx # Term Pregnancies Ectopic pregnancies Hx # Pregnancies Multiple births # of living children 2 Past Pregnancies Del. Date Name GA/Weeks Outcome Route Bth Weight Gen Labor Lgth Anesthesia Del Locatn Provider FOB Unknown 2016 [place] 39 live - full term 8#10oz Fem shay [address] [facility] Sohail 02/18/18 Tete 41 live - full term 8#6oz Female epid ural [facility] Delivery Date: 02/18/18 Last Updated by: Jen Millan Post dates Visit Details Expected Delivery Route/Plan Labor Preferences- CB/BF classes: no labor support person: Sohail labor intervention preferences: [] pain management options preferred: epidural cut cord/dad catch: cord : yes PP control planned: discussed discussed possible routes of delivery and associated risks: [] special requests: [] Plans Covid status: [] Flu vaccine: declined Tdap vaccine: declined Rhogam: NA LARC form signed: Yes Problem list reviewed and updated with the most current plan of care details and appropriate orders placed. Relevant counseling for the gestational age provided. Continue routine care and follow up unless otherwise noted in visit notes/problem list details OB Flowsheet Initial Weight: Not Recorded Date -?-?-?-?-?-?-?-?-?-?-?-?- EGA Weight BP Urine Prot -?-?-?-?-?-?-?-?-?-?-?-?- Glucose FHR FuHt Pres Dilation -?-?-?-?-?-?-?-?-?-?-?-?- Effaced St Visit Note 12/31/23 -?-?-?-?-?-?-?-?-?-?-?-?- 6w 5d 157 lb 8 oz 117/78 -?-?-?-?-?-?-?-?-?-?-?-?- 144 -?-?-?-?-?-?-?-?-?-?-?-?- KW- CRL cons wit h dates. NIPT discussed-unsure. 01/28/24 -?-?-?-?-?-?-?-?-?-?-?-?- 10w 5d 163 lb 121/83 Negative -?-?-?-?-?-?-?-?-?-?-?-?- Negative 160 -?-?-?-?-?-?-?-?-?-?-?-?- Sm- no vb crampi ng 02/26/24 -?-?-?-?-?-?-?-?-?-?-?-?- 14w 6d 166 lb 6 oz 115/73 Nega tive -?-?-?-?-?-?-?-?-?-?-?-?- Negative 149 -?-?-?-?-?-?-?-?-?-?-?-?- JV- pt has a fol liculitis of the skin above the pubic hair line. will try clindagel and desitin to dry it out. does not look like herpes. if does not not work after a week may try a steroid cream. anatomy scan scheduled for 04/07/24 03/24/24 -?-?-?-?-?-?-?-?-?-?-?-?- 18w 5d 172 lb 4 oz 110/64 Nega tive -?-?-?-?-?-?-?-?-?-?-?-?- Negative 148 -?-?-?-?-?-?-?-?-?-?-?-?- MH-No Vb, LOF. F eeling flutters. Folliculitis is resolving. 04/20/24 -?-?-?-?-?-?-?-?-?-?-?-?- 22w 4d 175 lb 108/66 -?-?-?-?-?-?-?-?-?-?-?-?- 155 22 -?-?-?-?-?-?-?-?-?-?-?-?- KW- no vb/lof/ct x. good fm. 28 week labs discussed-wants Fresh test. 05/20/24 -?-?-?-?-?-?-?-?-?-?-?-?- 26w 6d 178 lb 6 oz 98/63 Nega tive -?-?-?-?-?-?-?-?-?-?-?-?- Negative 136 26 -?-?-?-?-?-?-?-?-?-?-?-?- MH-No VB, LOF. G ood FM. Larc. 28 wk labs 06/09/24 -?-?-?-?-?-?-?-?-?-?-?-?- 29w 5d 183 lb 2 oz 112/73 Nega tive -?-?-?-?-?-?-?-?-?-?-?-?- Negative 140 29 Cephalic -?-?-?-?-?-?-?-?-?-?-?-?- JV- pt has a cou gh and rash. cough is on going and not associated with fever. rash is faint and on the abdomen. not itching. recommend benadryl and musinex. lungs clear. 06/22/24 -?-?-?-?-?-?-?-?-?-?-?-?- 31w 4d 185 lb 114/72 Negative -?-?--?-?-?-?-?-?-?-?-?-?- Negative 130 32 Cephalic -?-?-?-?-?-?-?-?-?-?-?-?- KW- no vb/lof/cr amping. good fm. doing much better now-cough resolved 07/07/24 -?-?-?-?-?-?-?-?-?-?-?-?- 33w 5d 188 lb 107/72 Negative -?-?-?-?-?-?-?-?-?-?-?-?- Negative 140 33 Cephalic -?-?-?-?-?-?-?-?-?-?-?-?- JV- no lof, vagi nal bleeding or dec fm. lot of pelvic pain. She has the complaint of feeling pressure and hearing difficulty in her left ear that happens most days for last week, in the afternoons. try claritin and if no improvement may consult ENT. 07/20/24 -?-?-?-?-?-?-?-?-?-?-?-?- 35w 4d 192 lb 127/56 Negative -?-?-?-?-?-?-?-?-?-?-?-?- Negative 130 36 Cephalic -?-?-?-?-?-?-?-?-?-?-?-?- KW- no vb/lof/ct x. good fm. doing well today. discussed plan and will look at the [facility] provides 07/27/24 -?-?-?-?-?-?-?-?-?-?-?-?- 36w 4d 190 lb 116/69 Negative -?-?-?-?-?-?-?-?-?-?-?-?- Negative 130 37 Cephalic 1 -?-?-?-?-?-?-?-?-?-?-?-?- SM- no vb lof go od fm no reuglar ctx gbs today 08/03/24 -?-?-?-?-?-?-?-?-?-?-?-?- 37w 4d 192 lb 6 oz 108/69 Nega tive -?-?-?-?-?-?-?-?-?-?-?-?- Negative 120 37 Cephalic 2 -?-?-?-?-?-?-?-?-?-?-?-?- JV- no lof, vagi nal bleeding, or dec fm. gbs is pos. 08/10/24 -?-?-?-?-?-?-?-?-?-?-?-?- 38w 4d 193 lb 132/80 Negative -?-?-?-?-?-?-?-?-?-?-?-?- Negative 130 38 Cephalic 2 -?-?-?-?-?-?-?-?-?-?-?-?- SM- n ovb lof go od fm no regular ctx 08/17/24 -?-?-?-?-?-?-?-?-?-?-?-?- 39w 4d 196 lb 117/84 Negative -?-?-?-?-?-?-?-?-?-?-?-?- Negative 125 41 Cephalic 3 -?-?-?-?-?-?-?-?-?-?-?-?- 70 -2 KW- no vb/ lof/reg ctx. good fm. 08/24/24 -?-?-?-?-?-?-?-?-?-?-?-?- 40w 4d 194 lb 113/73 Negative -?-?-?-?-?-?-?-?-?-?-?-?- Negative 130 41 Cephalic 4 -?-?-?-?-?-?-?-?-?-?-?-?- -2 Sm- no vb lof good fm no regular ctx NST FHR Rate Baby A Baseline: 140 Variability:: Moderate Accelerations:: 15 x 15 Decelerations:: None NST Reactive:: Yes FHR Category:: Category I Uterine Activity:: q3-5 ROS Constitutional Constitutional: Reports systems reviewed and no addt'l complaints, except as documented ENT HEENT: Reports systems reviewed and no addt'l complaints, except as documented Cardiovascular Cardiovascular: Reports systems reviewed and no addt'l complaints, except as documented Respiratory/Chest Respiratory/Chest: Reports systems reviewed and no addt'l complaints, except as documented Gastrointestinal Gastrointestinal: Reports systems reviewed and no addt'l complaints, except as documented and nausea; Denies abdominal pain Genitourinary Genitourinary: Reports systems reviewed and no addt'l complaints, except as documented, contractions Details: present and frequency (regular ) and movement Details: present Musculoskeletal Musculoskeletal: Reports systems reviewed and no addt'l complaints, except as documented Integumentary Integumentary: Reports as per HPI Neurologic Neurologic: Reports systems reviewed and no addt'l complaints, except as documented Endocrine Endocrinology: Reports systems reviewed and no addt'l complaints, except as documented Vital Signs Vital Signs Vital Signs: 08/26/24 08:23 08/26/24 08:23 08/26/24 08:23 Temperature Temperature Source Temporal Pulse Rate 69 Respiratory Rate Blood Pressure 104/61 BP Systolic 104 BP Diastolic 61 Pulse Ox 08/26/24 08:23 08/26/24 08:23 08/26/24 08:44 Temperature 98.1 F Temperature Source Pulse Rate 68 Respiratory Rate 16 Blood Pressure BP Systolic BP Diastolic Pulse Ox 08/26/24 08:44 08/26/24 09:16 08/26/24 09:16 Temperature Temperature Source Pulse Rate 65 Respiratory Rate Blood Pressure 110/74 BP Systolic 110 BP Diastolic 74 Pulse Ox 97 08/26/24 09:16 08/26/24 09:16 08/26/24 09:16 Temperature 98.4 F Temperature Source Temporal Pulse Rate Respiratory Rate 15 Blood Pressure BP Systolic BP Diastolic Pulse Ox 08/26/24 10:22 08/26/24 10:22 08/26/24 10:22 Temperature 98.0 F Temperature Source Temporal Pulse Rate Respiratory Rate 16 Blood Pressure BP Systolic BP Diastolic Pulse Ox 08/26/24 10:23 08/26/24 10:23 08/26/24 11:39 Temperature Temperature Source Temporal Pulse Rate 63 Respiratory Rate Blood Pressure 113/76 BP Systolic 113 BP Diastolic 76 Pulse Ox 08/26/24 11:39 08/26/24 11:39 08/26/24 11:40 Temperature 98.8 F Temperature Source Pulse Rate Respiratory Rate 16 Blood Pressure 98/57 L BP Systolic 98 BP Diastolic 57 Pulse Ox 08/26/24 11:40 08/26/24 13:05 08/26/24 13:05 Temperature 99.0 F Temperature Source Pulse Rate 63 Respiratory Rate 16 Blood Pressure BP Systolic BP Diastolic Pulse Ox 08/26/24 13:06 08/26/24 13:06 08/26/24 14:12 Temperature Temperature Source Temporal Pulse Rate 78 Respiratory Rate Blood Pressure 112/73 BP Systolic 112 BP Diastolic 73 Pulse Ox 08/26/24 14:12 08/26/24 14:12 08/26/24 14:14 Temperature 99.0 F Temperature Source Pulse Rate Respiratory Rate 16 Blood Pressure 114/69 BP Systolic 114 BP Diastolic 69 Pulse Ox 08/26/24 14:14 08/26/24 15:45 08/26/24 15:45 Temperature Temperature Source Temporal Pulse Rate 70 Respiratory Rate 16 Blood Pressure BP Systolic BP Diastolic Pulse Ox 08/26/24 15:45 08/26/24 15:48 08/26/24 15:48 Temperature 98.6 F Temperature Source Pulse Rate 75 Respiratory Rate Blood Pressure 119/72 BP Systolic 119 BP Diastolic 72 Pulse Ox 08/26/24 16:03 08/26/24 16:03 08/26/24 16:18 Temperature Temperature Source Pulse Rate 70 Respiratory Rate Blood Pressure 114/65 107/65 BP Systolic 114 107 BP Diastolic 65 65 Pulse Ox 08/26/24 16:18 08/26/24 16:18 08/26/24 16:18 Temperature 98.2 F Temperature Source Temporal Pulse Rate Respiratory Rate 16 Blood Pressure BP Systolic BP Diastolic Pulse Ox 08/26/24 16:33 08/26/24 16:33 08/26/24 16:33 Temperature Temperature Source Temporal Pulse Rate 74 Respiratory Rate Blood Pressure 97/58 L BP Systolic 97 BP Diastolic 58 Pulse Ox 08/26/24 16:33 08/26/24 16:33 08/26/24 16:48 Temperature 97.9 F Temperature Source Pulse Rate Respiratory Rate 16 Blood Pressure 115/68 BP Systolic 115 BP Diastolic 68 Pulse Ox 08/26/24 16:48 08/26/24 16:48 08/26/24 17:03 Temperature Temperature Source Pulse Rate 62 Respiratory Rate 16 Blood Pressure 117/59 L BP Systolic 117 BP Diastolic 59 Pulse Ox 08/26/24 17:03 08/26/24 17:03 08/26/24 17:03 Temperature Temperature Source Temporal Pulse Rate 62 Respiratory Rate 16 Blood Pressure BP Systolic BP Diastolic Pulse Ox 08/26/24 17:03 08/26/24 17:18 08/26/24 17:18 Temperature 98.9 F Temperature Source Pulse Rate 67 Respiratory Rate Blood Pressure 117/58 L BP Systolic 117 BP Diastolic 58 Pulse Ox Weight Weight: 193 lb Body Mass Index (BMI) 32.1 Physical Exam Const alert, oriented x3 and healthy appearing Constitutional Narrative: uncomfortable with contractions HEENT normocephalic and moist oral mucous membranes Head and Scalp: atraumatic Neck full ROM, no lymphadenopathy, supple and thyroid normal General: trachea midline Thyroid: thyroid normal Lymph Lymphatic: no lymphadenopathy noted Chest inspection of chest normal Resp normal respiratory effort Cardio regular rate GI normal to inspection, nondistended, normoactive bowel sounds, soft to palpation and non-tender Inspection: gravid external exam normal Bimanual Exam - Vag & Uterus: uterus non-tender Manual OB Exam: estimated gestational size appropriate, presentation cephalic, dilated, effaced and station Extremity normal to inspection General Extremity: Negative for edema Skin no rashes or lesions noted Neuro deep tendon reflexes 2+ bilaterally Motor Exam: strength 5/5 throughout and clonus absent Psych mental status grossly normal Labs Labs Labs: Blood Type A POSITIVE Antibody Screen NEGATIVE Hct 34.6 % (37-47) L Hgb 12.0 g/dL (12.0-15.0) Obstetrics Ultrasound Syphilis Total Ab Non-reactive Rubella IgG Antibody Reactive (Nonreactive) Hep Bs Antigen Non-Reactive (Nonreactive) Hepatitis C Antibody Non-Reactive (Nonreactive) Chlamydia DNA (ZAHEER) Negative (Negative) N.gonorrhoeae DNA (ZAHEER) Negative (Negative) HIV 1&2 Antibody Non-Reactive (Nonreactive) Glucose 1 Hr 50 gm 107 mg/dL (70-140) Group B Strep DNA POSITIVE (Negative) H Rhogam given: No Miscellaneous Test Assessment & Plan (1) Positive GBS test: COMMENT: pcn (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 declined AFP & carrier testing. nipt LR (4) Supervision of high-risk : QUALIFIERS: Trimester: second trimester Qualified Code(s): O09.92 - Supervision of high risk , unspecified, second trimester COMMENT: PRR , CIRO 08/20/24,David Nuno, Sohail (5) Thyroid disease: COMMENT: normal labs with NOB (6) Positive laboratory testing for human immunodeficiency virus: COMMENT: confirmation test-negative and apl panel negative (7) Uterine size date discrepancy : (8) Encounter for induction of labor: PLAN: Plan Patient presents IOL, plan management for with pitocin/AROM. Pain management: open to epidural. GBS pos. Management of any complications: none I have reviewed the [facility] and made any clinically relevant updates.
--- NOTE | 2024-08-26 17:41 | EX.PCM.OBVAG ---
Assessment & Plan (1) Encounter for induction of labor: (2) Uterine size date discrepancy : (3) Positive laboratory testing for human immunodeficiency virus: COMMENT: confirmation test-negative and apl panel negative (4) Thyroid disease: COMMENT: normal labs with NOB (5) Supervision of high-risk : QUALIFIERS: Trimester: second trimester Qualified Code(s): O09.92 - Supervision of high risk , unspecified, second trimester COMMENT: PRR , CIRO 08/20/24,caprice LERNER David Luther, Sohail (6) : QUALIFIERS: Weeks of gestation: 40 weeks Qualified Code(s): Z3A.40 - 40 weeks gestation of COMMENT: nl anatomy. declined AFP & carrier testing. 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 (8) Positive GBS test: COMMENT: pcn (9) Vaginal delivery: COMMENT: sm iol postdates caprice plunkett Maternal Data Information CIRO Calculator Estimated Delivery Date Method Current WG Current Estimate 08/20/24 LMP (Certain) 40w 6d Vaginal Delivery Maternal Presentation Maternal Presentation: see assessment and plan Vaginal Delivery Information Procedure Performed: Spontaneous Vaginal Delivery Surgeon/Practitioner: Rosalba Dupont Date of Procedure: 08/26/24 Pre-Procedure Diagnosis: see assessment and plan Post-Procedure Diagnosis: same Type of anesthesia: Epidural Estimated Blood Loss: 200 Findings Description of procedure: Patient began pushing and delivered the head in the KETAN presentation. The head was delivered atraumatically. The anterior and posterior shoulders delivered without complication followed by the rest of the and the infant was placed on the maternal abdomen. Delayed cord clamping was employed for approximately 60 seconds. Cord was clamped and cut and gentle traction was applied to the cord and the placenta delivered spontaneously immediately following it was noted to be intact with three-vessel cord. The perineum and vagina were inspected and was noted to have a second -degree laceration injected with lidocaine that was repaired in the usual fashion with 3-0 vicryl rapide. EBL was 200. Patient and tolerated delivery well. Presentation: Vertex Placental Delivery Description: Spontaneous Specimen collected: Yes Description of specimen(s) removed: placenta Senior Information Security Architect ecommerce project manager: No Post Vaginal Deli Medications given after delivery: Other (pitocin) Complication Complications: No Multi Select Codes Urinary/Genital Urinary/Genital CPT Codes: 79545 Vaginal Delivery [facility]
--- NOTE | 2024-08-26 17:57 | DCINST_ITS ---
Discharge Instructions Diet Discharge Diet: No restrictions Activity Discharge Activity: Return to Normal Activity, May Not Drive (while taking narcotic pain medications.) and May Shower May resume sexual activity in: 4-6 weeks Dressing / Incision Call your doctor if your incision/area has: Continuous Slow Oozing, Sudden Increased Bleeding, Increased Pain/ Swelling, Increased Redness and Foul Smelling Discharge Follow Up Care Please Follow Up With: Rosalba Dupont MD When: Call [phone] to make an appointment with your doctor in 6 weeks. If you had elevated blood pressure or 4th degree laceration, you will need to be seen in 2 weeks. Test Results: Test results from this visit will be discussed in further detail at your follow- up appointment, if applicable. Discharge Plan Admission Admit Date/Time: 08/26/24 07:12 Attending Provider: Rosalba Dupont Primary Care Provider: Care Physician,Lily Primary Discharge Orders/Prescriptions Prescriptions: No Action PNV-DHA 27 mg iron-1 mg -300 mg capsule 1 cap PO DAILY Referrals / Follow Up: Care Physician,No Primary [Primary Care Provider] - Disposition Disposition (needs filled in before D/C Order can be placed): Home, Self Care
[2024-08-27 03:23] VITALS: BP 105/68; PULSE 65
[2024-08-27 03:25] VITALS: BP 105/68; PULSE 67; RESP 16; TEMP 36.6; O2SAT 99
[2024-08-27 08:13] VITALS: BP 97/55; PULSE 68; RESP 16; TEMP 36.6; O2SAT 97
--- NOTE | 2024-08-27 08:23 | PCM.PN.OB ---
Subjective Subjective Patient doing well without complaints. Tolerating PO. Ambulating and voiding without difficulty. Feeding well. Denies chest pain, shortness of breath, calf pain/swelling, fevers, chills, lightheadedness. Objective Data Objective Data Vital Signs: Vital Signs Temp Pulse Resp BP Pulse Ox O2 Del Method 97.9 F 68 16 97/55 L 97 Room Air 08/27/24 03:25 08/27/24 08:13 08/27/24 03:25 08/27/24 08:13 08/27/24 08:13 08/27/24 03:25 Oxygen Delivery Method Room Air Weight: 193 lb Body Mass Index (BMI) 32.1 Intake & Output: Intake and Output for Last 24 Hours 08/25/24 08/26/24 08/27/24 23:59 23:59 23:59 Intake Total 2575.12 / 2575.12 Output Total 1050 / 1050 400 / 400 Balance 1525.12 / 1525.12 -400 / -400 Lab / Micro Data 08/26/24 07:55 Labs: Laboratory Results - last 24 hr 08/26/24 07:55: Syphilis Total Ab Non-reactive, Blood Type A POSITIVE, Antibody Screen NEGATIVE ROS Constitutional Constitutional: Denies chills, fatigue, fever(s), poor appetite or weakness Eyes Eyes: Denies blurry vision, change in vision, seeing flashes or spots in vision ENT HEENT: Denies dizziness, headache(s), loss taste/smell or sore throat Cardiovascular Cardiovascular: Denies chest pain, dizziness, dyspnea, irregular heart rhythm, palpitations or rapid heart rate Respiratory/Chest Respiratory/Chest: Denies chest tightness, cough, dyspnea or breast pain Gastrointestinal Gastrointestinal: Denies abdominal pain, constipation or vomiting Genitourinary Genitourinary: Denies dysuria or flank pain Musculoskeletal Musculoskeletal: Denies difficulty walking, joint pain, limited range of motion or numbness Neurologic Neurologic: Denies abnormal movements, abnormal speech, dizziness, numbness, seizure-like activity or syncope Psychiatric Psychiatric: Denies anxiety, behavioral changes, change in appetite, confusion, depression or suicidal thoughts Physical Exam Const alert, oriented x3 and no apparent distress General Appearance: cooperative and comfortable Resp normal respiratory effort Cardio regular rate GI normal to inspection, nondistended, normoactive bowel sounds GI Narrative: uterus is firm below umbilicus Palpation: soft Back/Spine no CVA tenderness and thoraco-lumbar ROM normal Extremity normal to inspection, no clubbing, cyanosis or edema, no calf tenderness and no pedal edema Psych mental status grossly normal, thought process normal, cooperative, affect normal, speech normal, activity/motor behavior normal, denies homicidal ideation and denies suicidal ideation Assessment & Plan (1) Vaginal delivery: COMMENT: sm iol postdates boy plunkett (2) Thyroid disease: COMMENT: normal labs with NOB PLAN: Plan s/p PPD # 1 1. routine post delivery care 2. breast feeding- support given 3. rh positive 4. rubella immune 5. Ok for dc to home after has decided on baby circumcision and vitamin K injection- still deciding.
[2024-08-27 13:26] VITALS: PULSE 88; O2SAT 96
[2024-08-27 13:27] VITALS: BP 110/64; PULSE 83; PULSE 88; RESP 16; TEMP 36.3; O2SAT 94; O2SAT 96
--- NOTE | 2024-08-31 11:47 | NURSING ---
Here for outpatient circumcision for Rizwan. States she is doing great, denies any problems. Rizwan is nursing well, milk is in, not having any difficulty.
== END 2024-08-27 16:30 | disposition home or self-care (01) | DRG 806 ==
PROVIDERS: Admitting Provider Obstetrics & Gynecology; Referring Provider Obstetrics & Gynecology; Visit Provider Obstetrics & Gynecology
DX: O48.0 Post-term pregnancy (principal); Z37.0 Single live birth; O98.82 Other maternal infectious and parasitic diseases complicating childbirth; E07.9 Disorder of thyroid, unspecified; B95.1 Streptococcus, group B, as the cause of diseases classified elsewhere; Z3A.40 40 weeks gestation of pregnancy; O70.1 Second degree perineal laceration during delivery; O99.284 Endocrine, nutritional and metabolic diseases complicating childbirth
CPT/HCPCS: 59025; 59050; 85025; 86780; 86850; 86900; 86901; 99221; J7120; G0378